=== PATIENT | male | born 1980 | race Caucasian/White ===

== ENCOUNTER 2021-12-12 05:37 | Emergency (ER) | payer OTHER ==
[2021-12-12] MEDS ORDERED: Ketorolac Tromethamine 30 MG/ML VIAL ONE (06:16)
[2021-12-12 06:33] LABS: #Basophils 0.1 10x3/uL (0.0-0.2); #Eosinphils 0.1 10x3/uL (0.0-0.5); #Monocytes 0.7 10x3/uL (0.0-1.1); #Neutrophils 7.1 10x3/uL (1.5-8.4); %Basophils 0.8 % (0.0-2.0); %Eosinophils 1.4 % (0.0-6.0); %Lymphocytes 13.5 % (18.0-47.0); %Monocytes 7.2 % (0.0-10.0); %Neutrophils 76.8 % (40.0-75.0); Hemoglobin 15.1 g/dL (13.5-17.5); Mean Corpuscular HGB CONC 33.6 g/dL (32.0-36.0); Mean Corpuscular Hemoglobin 30.8 pg (27.0-33.0); Mean Corpuscular Volume 91.6 fl (81.2-95.1); Mean Platelet Volume 9.7 fl (7.4-10.4); Platelet Count 260 10x3/uL (150-450); RBC Distribution Width 14.2 % (11.5-14.5); White Blood Cell (WBC) Count 9.2 10x3/uL (3.5-10.5)
[2021-12-12 06:44] LABS: ALT (SGPT) 30 U/L (8-55); AST (SGOT) 27 U/L (5-34); Albumin 4.3 g/dL (3.5-5.0); Alkaline Phosphatase 53 U/L (40-110); Anion Gap 12 mmol/L (10-20); BUN (Urea Nitrogen) 13 mg/dL (8.9-20.6); Bilirubin, Total 0.8 mg/dL (0.2-1.2); Calc. Creatinine Clearance 0 mL/min (70-130); Calcium 9.1 mg/dL (7.8-10.44); Carbon Dioxide 26 mmol/L (22-29); Chloride 104 mmol/L (98-107); Globulin 2.9 g/dL (2.4-3.5); Glucose 100 mg/dL (70-105); Potassium 3.9 mmol/L (3.5-5.1); Protein, Total 7.2 g/dL (6.0-8.3); Sodium 138 mmol/L (136-145)
[2021-12-12 08:51] LABS: Bilirubin Neg (Negative); Blood, Urine 250 (Negative); Clarity Clear (Clear); Glucose, Urine (Dipstick) Normal (Negative); Ketone, Urine Negative (Negative); Leukocyte 25 (Negative); Nitrite Negative (Negative); Protein, Urine (Dipstick) 30 mg/dl (Neg-Trace); Specific Gravity, Urine 1.015 (1.002-1.036); Urobilinogen Normal mg/dL (Less than 2)
[2021-12-12 08:59] LABS: Bacteria/HPF None Seen HPF (None Seen); Squamous Epithelial 0-3 HPF (0-3); WBC/HPF 0-3 HPF (0-3)
[2021-12-12 09:00] LABS: Triple Phosphate Crystal Rare HPF (None Seen)
[2021-12-12] MEDS ORDERED: Morphine 4 MG/ML VIAL ONE (10:00)
[2021-12-12] MEDS ORDERED: Ondansetron PF 4 MG/2 ML Vial ONE (10:00)
[2021-12-12] MEDS ORDERED: Lorazepam 2 MG/ML VIAL ONE (12:50)
== END 2021-12-12 09:55 | disposition home or self-care (01) ==
LOC: CSHERS 05:37
DX: N20.0 Calculus of kidney (principal); F17.210 Nicotine dependence, cigarettes, uncomplicated
CPT/HCPCS: 74176; 80053; 81003; 81015; 85025; 96374; 96375; J1885; J2060; J2270; J2405

== ENCOUNTER 2023-08-14 11:16 | Inpatient (IN) | payer OTHER, SELFPAY ==
[~2023-08-14 11:16] MED LIST: Iopamidol 300 61% 100 ML VIAL FS ONE
[2023-08-14 11:36] LABS: Actual Bicarbonate (HCO3v) 21.8 mEq/L (22-28); Base Excess -10.2 mEq/L (-2 - +2); Calcium, Ionized (venous) 1.06 mmol/L (1.16-1.32); Chloride (VBG) 100 mmol/L (98-106); Hematocrit-VBG 40 % (42.0-52.0); Hemoglobin (Hb) 13.6 g/dL (13.2-17.3); Potassium (VBG) 3.36 mmol/L (3.70-5.30); Puncture Site Other Site; RapidComm Collect By LAB TECH; Sodium 139 mmol/L (133-146); pH (venous) 7.044 (7.32-7.43)
[2023-08-14] MEDS ORDERED: Propofol 1,000 MG/100 ML VIAL IV ONE (11:36)
[2023-08-14 11:50] LABS: Hematocrit 39.8 % (38.8-50.0); Hemoglobin 12.7 g/dL (13.5-17.5); Mean Corpuscular HGB CONC 31.9 g/dL (32.0-36.0); Mean Corpuscular Hemoglobin 30.6 pg (27.0-33.0); Mean Corpuscular Volume 95.9 fl (81.2-95.1); Mean Platelet Volume 10.7 fl (7.4-10.4); Platelet Count 217 10x3/uL (150-450); RBC Distribution Width 13.2 % (11.5-14.5); Red Blood Cell (RBC) Count 4.15 10x6/uL (4.32-5.72); White Blood Cell (WBC) Count 12.9 10x3/uL (3.5-10.5)
[2023-08-14 11:53] LABS: Acetaminophen Less than 10 mcg/mL (10.0-30.0); Alcohol Less than 10.0 mg/dL (Less than 10); Magnesium 2.3 mg/dL (1.6-2.6); Salicylate Less than 8.0 mg/dL (15.0-30.0)
[2023-08-14 11:56] LABS: ALT (SGPT) 33 U/L (8-55); AST (SGOT) 29 U/L (5-34); Albumin 3.3 g/dL (3.5-5.0); Alkaline Phosphatase 45 U/L (40-110); Anion Gap 21 mmol/L (10-20); BUN (Urea Nitrogen) 11 mg/dL (8.9-20.6); Bilirubin, Total 0.4 mg/dL (0.2-1.2); CK (CPK) 78 U/L (30-200); Calc. Creatinine Clearance 0 mL/min (70-130); Calcium 7.5 mg/dL (7.8-10.44); Carbon Dioxide 20 mmol/L (22-29); Chloride 102 mmol/L (98-107); Estimated GFR 46; Globulin 1.9 g/dL (2.4-3.5); Potassium 3.5 mmol/L (3.5-5.1); Protein, Total 5.2 g/dL (6.0-8.3); Sodium 139 mmol/L (136-145)
[2023-08-14 11:59] LABS: Glucose 423 mg/dL (70-105); Troponin I Less than 0.010 ng/mL (< 0.028)
[2023-08-14 12:46] LABS: MDiff Complete? YES
[2023-08-14 12:59] LABS: Actual Bicarbonate (HCO3a) 27.1 mEq/L (22-28); Base Excess (BEa) 0.2 mEq/L (-2.0 to +3.0); CO2 Tension 53.6 mmHg (35.0-45.0); Calcium, Ionized (arterial) 1.06 mmol/L (1.12-1.30); Carboxyhemoglobin (COHb) 1.9 gm% (0.0-3.0); Hematocrit-ABG 39 % (42.0-52.0); Hemoglobin (Hb) 13.4 g/dL (14.0-18.0); O2 Tension (PaO2), arterial 54.2 mmHg (80.0-100.0); Puncture Site RRA; pH, Arterial 7.322 (7.35-7.45)
[2023-08-14 13:05] LABS: Amphetamine Detected (NotDetected); Barbiturates Screen Not Detected (NotDetected); Benzodiazepine Screen Not Detected (NotDetected); Cocaine Metabolite Screen Not Detected (NotDetected); Methadone Not Detected (NotDetected); Methamphetamine Detected (NotDetected); Opiate Screen Not Detected (NotDetected); Oxycodone Screen Not Detected (NotDetected); Phencyclidine (PCP) Not Detected (NotDetected); THC/Cannabinoid Screen Detected (NotDetected); Tricyclic Screen Not Detected (NotDetected)
[2023-08-14] MEDS ORDERED: Senokot S 8.6-50 MG TAB PO PRN (13:27)
[2023-08-14] MEDS ORDERED: Acetaminophen 650 MG Suppository PR PRN (13:27)
[2023-08-14] MEDS ORDERED: Ondansetron PF 4 MG/2 ML Vial IVP PRN (13:27)
[2023-08-14] MEDS ORDERED: CEFAZOLIN 2 GM VIAL ONE (13:28)
[2023-08-14] MEDS ORDERED: CEFAZOLIN 1 GM VIAL ONE (13:28)
[2023-08-14] MEDS ORDERED: Sodium Chloride 0.9% 1,000 ML IV SCH ×2 (13:30→13:31)
[2023-08-14 13:35] LABS: Monocytes 7 % (0-10)
[2023-08-14] MEDS ORDERED: Dextrose 5% in Water 1,000 ML IV PRN (13:35)
[2023-08-14] MEDS ORDERED: Glucagon 1 MG/ML KIT IM PRN (13:35)
[2023-08-14] MEDS ORDERED: Dextrose 50% Abboject 50 ML SYRINGE SLOW IVP PRN (13:35)
[2023-08-14 13:36] LABS: Eosinophils 4 % (0-10)
[2023-08-14 13:37] LABS: Band 4 % (5-11)
[2023-08-14 13:39] LABS: Lymphocytes 42 % (21-51)
[2023-08-14 13:40] LABS: Platelet Adequacy Comment Appears Adequate; RBC Morph Comment Within Normal Limits
[2023-08-14] MEDS ORDERED: Ventilator Sedation Protocol 1 EACH FS SCH (13:45)
[2023-08-14] MEDS ORDERED: Lactated Ringer's 1,000 ML IV SCH ×2 (13:45→19:30)
[2023-08-14] MEDS ORDERED: Ampicillin/Sulbactam 3 GM in Sodium Chloride 0.9% 100 ML IVPB SCH (13:45)
[2023-08-14 14:49] LABS: Lactic Acid 1.7 mmol/L (0.5-2.2)
[2023-08-14] MEDS ORDERED: Propofol BOLUS 1,000 MG/100 ML VIAL IV PRN (15:15)
[2023-08-14] MEDS ORDERED: Fentanyl BOLUS 250 ML IVPB PRN (15:15)
[2023-08-14] MEDS ORDERED: Lorazepam 2 MG/ML VIAL SLOW IVP PRN (15:15)
[2023-08-14] MEDS ORDERED: Morphine 2 MG/ML VIAL SLOW IVP PRN (15:15)
[2023-08-14] MEDS ORDERED: Piperacillin/Tazobactam 3.375 GM in Sodium Chloride 0.9% 100 ML IVPB SCH (15:45)
[2023-08-14] MEDS: Midazolam In 0.9 % NaCl/PF 100 MG in Premix 1 BAG IVPB SCH ×2 (15:54→23:30)
[2023-08-14] MEDS: Ipratropium/Albuterol 3 ML NEB NEB SCH ×3 (16:05→22:50)
[2023-08-14] MEDS: FENTANYL 2,000MCG/100-0.9%NACL 100 ML IVPB SCH ×2 (16:28→23:30)
[2023-08-14] MEDS: Propofol 1,000 MG/100 ML VIAL IV PRN ×4 (16:33→23:51)
[2023-08-14 16:42] LABS: Actual Bicarbonate (HCO3a) 23.9 mEq/L (22-28); Base Excess (BEa) -4.3 mEq/L (-2.0 to +3.0); CO2 Tension 55.4 mmHg (35.0-45.0); Calcium, Ionized (arterial) 1.11 mmol/L (1.12-1.30); Carboxyhemoglobin (COHb) 0.9 gm% (0.0-3.0); Hematocrit-ABG 50 % (42.0-52.0); Hemoglobin (Hb) 17.1 g/dL (14.0-18.0); O2 Tension (PaO2), arterial 56.3 mmHg (80.0-100.0); Puncture Site LRA; pH, Arterial 7.252 (7.35-7.45)
[2023-08-14] MEDS: Vecuronium 10 MG VIAL IV PRN (17:15)
[2023-08-14] MEDS ORDERED: Norepinephrine 8 MG/0.9% NS 250 ML IVPB SCH (17:15)
[2023-08-14] MEDS ORDERED: Sterile Water 10 ML VIAL FS PRN (17:16)
[2023-08-14 18:30] LABS: INR-International Normal Ratio 1.1; PTT 29.1 sec (22.0-33.0); Prothrombin Time 11.4 sec (9.5-12.1)
[2023-08-14] MEDS ORDERED: DO NOT USE PRE-EXISTING LYTE PROTOCOL FS SCH (18:45)
[2023-08-14 19:24] LABS: Phosphorus 9.4 mg/dL (2.3-4.7)
[2023-08-14] MEDS ORDERED: NOREPINEPHRINE 8 MG/250 ML-D5W 250 ML IVPB SCH (19:30)
[2023-08-14] MEDS ORDERED: Calcium Acetate 667 MG CAP PO SCH (20:00)
[2023-08-14 20:05] LABS: Calcium 8.2 mg/dL (7.8-10.44); Glucose 103 mg/dL (70-105)
[2023-08-14] MEDS: Vasopressin 20 UNITS, Admixture Fee 1 EACH in Sodium Chloride 0.9% 50 ML IV SCH (20:31)
[2023-08-14] MEDS: Piperacillin/Tazobactam 3.375 GM in Sodium Chloride 0.9% 100 ML IVPB SCH (20:48)
[2023-08-14 22:11] LABS: Anion Gap 18 mmol/L (10-20); BUN (Urea Nitrogen) 12 mg/dL (8.9-20.6); Calc. Creatinine Clearance 132 mL/min (70-130); Calcium 8.3 mg/dL (7.8-10.44); Carbon Dioxide 24 mmol/L (22-29); Chloride 104 mmol/L (98-107); Estimated GFR 68; Glucose 100 mg/dL (70-105); INR-International Normal Ratio 1.1; PTT 29.9 sec (22.0-33.0); Phosphorus 2.1 mg/dL (2.3-4.7); Potassium 3.7 mmol/L (3.5-5.1); Prothrombin Time 11.5 sec (9.5-12.1); Sodium 142 mmol/L (136-145)
[2023-08-14] MEDS: Dextrose 5%-Lactated Ringers 1,000 ML IV SCH (22:16)
[2023-08-14] MEDS: Famotidine/PF 20 mg/2ml Vial SLOW IVP SCH (22:16)
[2023-08-14 22:18] LABS: Troponin I 0.063 ng/mL (< 0.028)
[2023-08-14 22:23] LABS: Hematocrit 46.4 % (38.8-50.0); Hemoglobin 15.3 g/dL (13.5-17.5); Mean Corpuscular Hemoglobin 29.9 pg (27.0-33.0); Mean Corpuscular Volume 90.6 fl (81.2-95.1); Mean Platelet Volume 10.4 fl (7.4-10.4); Platelet Count 217 10x3/uL (150-450); RBC Distribution Width 13.4 % (11.5-14.5); Red Blood Cell (RBC) Count 5.12 10x6/uL (4.32-5.72); White Blood Cell (WBC) Count 7.8 10x3/uL (3.5-10.5)
[2023-08-14 22:41] LABS: ALV-art Gradient 166.875 mmHg (0-20); Actual Bicarbonate (HCO3a) 23.2 mEq/L (22-28); Base Excess (BEa) 0.2 mEq/L (-2.0 to +3.0); CO2 Tension 33.3 mmHg (35.0-45.0); Calcium, Ionized (arterial) 1.09 mmol/L (1.12-1.30); Carboxyhemoglobin (COHb) 0.2 gm% (0.0-3.0); Critical Notified By: CP.PH; Hematocrit-ABG 48 % (42.0-52.0); Hemoglobin (Hb) 16.3 g/dL (14.0-18.0); O2 Tension (PaO2), arterial 76.7 mmHg (80.0-100.0); Potassium - ABG Lab 3.18 mmol/L (3.70-5.30); Puncture Site LRA; RapidComm Collect By CP.PH
[2023-08-14 23:02] LABS: Band 36 % (5-11); Lymphocytes 6 % (21-51); Metamyelocyte 7 % (0-0); Monocytes 11 % (0-10); RBC Morph Comment Within Normal Limits; Reactive Lymphocytes 5 % (0-10)
[2023-08-14 23:03] LABS: Platelet Adequacy Comment Appears Adequate
[2023-08-14 23:06] LABS: Neutrophil 35 % (42-75)
[2023-08-14 23:10] LABS: MDiff Complete? YES
[2023-08-15] MEDS: Vasopressin 20 UNITS, Admixture Fee 1 EACH in Sodium Chloride 0.9% 50 ML IV SCH ×2 (01:52→10:13)
[2023-08-15] MEDS: Propofol 1,000 MG/100 ML VIAL IV PRN ×3 (02:30→20:22)
[2023-08-15] MEDS: Ipratropium/Albuterol 3 ML NEB NEB SCH ×6 (02:30→22:05)
[2023-08-15 04:11] LABS: Actual Bicarbonate (HCO3a) 20.5 mEq/L (22-28); Base Excess (BEa) -4.7 mEq/L (-2.0 to +3.0); CO2 Tension 38.8 mmHg (35.0-45.0); Calcium, Ionized (arterial) 1.17 mmol/L (1.12-1.30); Carboxyhemoglobin (COHb) 0.3 gm% (0.0-3.0); Critical Notified By: CP.PH; Hematocrit-ABG 45 % (42.0-52.0); Hemoglobin (Hb) 15.2 g/dL (14.0-18.0); O2 Tension (PaO2), arterial 88.2 mmHg (80.0-100.0); Potassium - ABG Lab 2.87 mmol/L (3.70-5.30); Puncture Site LRA; RapidComm Collect By CP.PH; Temperature 32.8 C; pH, Arterial 7.341 (7.35-7.45)
[2023-08-15] MEDS: Piperacillin/Tazobactam 3.375 GM in Sodium Chloride 0.9% 100 ML IVPB SCH ×3 (04:20→20:01)
[2023-08-15 04:52] LABS: Anion Gap 18 mmol/L (10-20); BUN (Urea Nitrogen) 13 mg/dL (8.9-20.6); CK (CPK) 181 U/L (30-200); Calc. Creatinine Clearance 132 mL/min (70-130); Calcium 8.3 mg/dL (7.8-10.44); Carbon Dioxide 20 mmol/L (22-29); Chloride 105 mmol/L (98-107); Estimated GFR 68; Glucose 197 mg/dL (70-105); Magnesium 1.6 mg/dL (1.6-2.6); Potassium 3.3 mmol/L (3.5-5.1); Sodium 140 mmol/L (136-145)
[2023-08-15 05:05] LABS: Band 47 % (5-11); Lymphocytes 5 % (21-51); Metamyelocyte 7 % (0-0); Monocytes 6 % (0-10); Myelocyte 1 % (0-0); Neutrophil 32 % (42-75); Reactive Lymphocytes 2 % (0-10)
[2023-08-15 05:07] LABS: Reflex for Review?? YES
[2023-08-15 05:09] LABS: Platelet Adequacy Comment Appears Adequate; RBC Morph Comment Within Normal Limits
[2023-08-15 05:10] LABS: Delete Auto Diff?? YES; Hematocrit 42.9 % (38.8-50.0); Hemoglobin 14.1 g/dL (13.5-17.5); Mean Corpuscular HGB CONC 32.9 g/dL (32.0-36.0); Mean Corpuscular Hemoglobin 29.7 pg (27.0-33.0); Mean Corpuscular Volume 90.5 fl (81.2-95.1); Mean Platelet Volume 10.3 fl (7.4-10.4); Platelet Count 196 10x3/uL (150-450); RBC Distribution Width 13.5 % (11.5-14.5); Red Blood Cell (RBC) Count 4.74 10x6/uL (4.32-5.72); White Blood Cell (WBC) Count 8.4 10x3/uL (3.5-10.5)
[2023-08-15] MEDS ORDERED: Potassium Chloride 40 MEQ in Premix 1 BAG IVPB SCH (07:45)
[2023-08-15] MEDS: Dextrose 5%-Lactated Ringers 1,000 ML IV SCH ×2 (08:20→17:17)
[2023-08-15] MEDS: Famotidine/PF 20 mg/2ml Vial SLOW IVP SCH ×2 (08:20→20:02)
[2023-08-15] MEDS: Calcium Acetate 667 MG CAP PO SCH ×2 (08:48→12:31)
[2023-08-15 10:37] LABS: INR-International Normal Ratio 1.1; PTT 26.1 sec (22.0-33.0); Prothrombin Time 11.8 sec (9.5-12.1)
[2023-08-15 10:40] LABS: Anion Gap 18 mmol/L (10-20); BUN (Urea Nitrogen) 14 mg/dL (8.9-20.6); Calc. Creatinine Clearance 138 mL/min (70-130); Calcium 8.5 mg/dL (7.8-10.44); Carbon Dioxide 21 mmol/L (22-29); Chloride 105 mmol/L (98-107); Estimated GFR 69; Glucose 176 mg/dL (70-105); Magnesium 1.7 mg/dL (1.6-2.6); Phosphorus 2.2 mg/dL (2.3-4.7); Sodium 141 mmol/L (136-145)
[2023-08-15 10:46] LABS: Troponin I Less than 0.010 ng/mL (< 0.028)
[2023-08-15 10:48] LABS: Hematocrit 43.9 % (38.8-50.0); Hemoglobin 14.3 g/dL (13.5-17.5); Mean Corpuscular HGB CONC 32.6 g/dL (32.0-36.0); Mean Corpuscular Volume 92.2 fl (81.2-95.1); Mean Platelet Volume 10.6 fl (7.4-10.4); Platelet Count 214 10x3/uL (150-450); RBC Distribution Width 13.7 % (11.5-14.5); Red Blood Cell (RBC) Count 4.76 10x6/uL (4.32-5.72); White Blood Cell (WBC) Count 14.4 10x3/uL (3.5-10.5)
[2023-08-15 10:49] LABS: MDiff Complete? YES
[2023-08-15] MEDS: Magnesium 2 GM/50 ML(in water) 2 GM in Premix 1 BAG IVPB SCH ×2 (11:15→12:04)
[2023-08-15 11:35] LABS: Lymphocytes 8 % (21-51); Monocytes 8 % (0-10)
[2023-08-15 11:37] LABS: Platelet Adequacy Comment Appears Adequate; RBC Morph Comment Within Normal Limits
[2023-08-15] MEDS: Vecuronium 10 MG VIAL IV PRN ×4 (13:32→21:52)
[2023-08-15 14:54] LABS: Hemoglobin A1c 4.9 % (4.0-6.0)
[2023-08-15] MEDS ORDERED: Electrolyte Replacement Protocol 1 EACH FS SCH (16:00)
[2023-08-15 17:02] LABS: Anion Gap 15 mmol/L (10-20); BUN (Urea Nitrogen) 15 mg/dL (8.9-20.6); Calc. Creatinine Clearance 154 mL/min (70-130); Calcium 8.6 mg/dL (7.8-10.44); Carbon Dioxide 22 mmol/L (22-29); Chloride 107 mmol/L (98-107); Estimated GFR 80; Glucose 150 mg/dL (70-105); Potassium 3.4 mmol/L (3.5-5.1); Sodium 141 mmol/L (136-145)
[2023-08-15 20:20] LABS: Magnesium 2.5 mg/dL (1.6-2.6)
[2023-08-15] MEDS: FENTANYL 2,000MCG/100-0.9%NACL 100 ML IVPB SCH (20:21)
[2023-08-15 20:27] LABS: Anion Gap 18 mmol/L (10-20); BUN (Urea Nitrogen) 15 mg/dL (8.9-20.6); Calc. Creatinine Clearance 161 mL/min (70-130); Calcium 8.6 mg/dL (7.8-10.44); Carbon Dioxide 19 mmol/L (22-29); Chloride 108 mmol/L (98-107); Estimated GFR 84; Glucose 119 mg/dL (70-105); Potassium 3.8 mmol/L (3.5-5.1); Sodium 141 mmol/L (136-145)
[2023-08-16] MEDS: Propofol 1,000 MG/100 ML VIAL IV PRN ×4 (00:32→23:29)
[2023-08-16 00:55] LABS: Anion Gap 18 mmol/L (10-20); BUN (Urea Nitrogen) 15 mg/dL (8.9-20.6); Calc. Creatinine Clearance 149 mL/min (70-130); Calcium 8.4 mg/dL (7.8-10.44); Carbon Dioxide 20 mmol/L (22-29); Chloride 108 mmol/L (98-107); Estimated GFR 76; Glucose 107 mg/dL (70-105); Potassium 4.1 mmol/L (3.5-5.1); Sodium 142 mmol/L (136-145)
[2023-08-16] MEDS: Dextrose 5%-Lactated Ringers 1,000 ML IV SCH ×3 (02:29→23:30)
[2023-08-16] MEDS: Ipratropium/Albuterol 3 ML NEB NEB SCH ×6 (02:55→22:33)
[2023-08-16] MEDS: Piperacillin/Tazobactam 3.375 GM in Sodium Chloride 0.9% 100 ML IVPB SCH ×3 (03:30→21:00)
[2023-08-16 03:58] LABS: Hematocrit 42.7 % (38.8-50.0); Hemoglobin 14.2 g/dL (13.5-17.5); Mean Corpuscular HGB CONC 33.3 g/dL (32.0-36.0); Mean Corpuscular Hemoglobin 29.8 pg (27.0-33.0); Mean Corpuscular Volume 89.7 fl (81.2-95.1); Mean Platelet Volume 10.8 fl (7.4-10.4); Platelet Count 190 10x3/uL (150-450); Red Blood Cell (RBC) Count 4.76 10x6/uL (4.32-5.72); White Blood Cell (WBC) Count 17.9 10x3/uL (3.5-10.5)
[2023-08-16 04:06] LABS: Anion Gap 18 mmol/L (10-20); BUN (Urea Nitrogen) 14 mg/dL (8.9-20.6); Calc. Creatinine Clearance 147 mL/min (70-130); Calcium 8.6 mg/dL (7.8-10.44); Carbon Dioxide 21 mmol/L (22-29); Chloride 107 mmol/L (98-107); Estimated GFR 75; Glucose 97 mg/dL (70-105); Magnesium 2.3 mg/dL (1.6-2.6); Potassium 4.2 mmol/L (3.5-5.1); Sodium 142 mmol/L (136-145)
[2023-08-16 04:12] LABS: Band 35 % (5-11); Eosinophils 2 % (0-10); Lymphocytes 9 % (21-51); Metamyelocyte 6 % (0-0); Monocytes 7 % (0-10); Neutrophil 41 % (42-75)
[2023-08-16 04:14] LABS: Delete Auto Diff?? YES; Platelet Adequacy Comment Appears Adequate; RBC Morph Comment Within Normal Limits
[2023-08-16 04:19] LABS: Phosphorus 3.7 mg/dL (2.3-4.7)
[2023-08-16] MEDS ORDERED: Midazolam HCl 2 mg/2 ml Vial IVP SCH (05:00)
[2023-08-16] MEDS: Famotidine/PF 20 mg/2ml Vial SLOW IVP SCH ×2 (08:25→21:00)
[2023-08-16 09:00] LABS: Anion Gap 14 mmol/L (10-20); BUN (Urea Nitrogen) 14 mg/dL (8.9-20.6); Calc. Creatinine Clearance 138 mL/min (70-130); Calcium 8.9 mg/dL (7.8-10.44); Carbon Dioxide 27 mmol/L (22-29); Chloride 107 mmol/L (98-107); Estimated GFR 69; Glucose 98 mg/dL (70-105); Potassium 4.2 mmol/L (3.5-5.1); Sodium 144 mmol/L (136-145)
[2023-08-16 09:03] LABS: ALV-art Gradient 149.525 mmHg (0-20); Actual Bicarbonate (HCO3a) 27.8 mEq/L (22-28); Base Excess (BEa) 0.9 mEq/L (-2.0 to +3.0); CO2 Tension 53.1 mmHg (35.0-45.0); Calcium, Ionized (arterial) 1.19 mmol/L (1.12-1.30); Carboxyhemoglobin (COHb) 0.5 gm% (0.0-3.0); Hematocrit-ABG 45 % (42.0-52.0); Hemoglobin (Hb) 15.2 g/dL (14.0-18.0); O2 Tension (PaO2), arterial 69.3 mmHg (80.0-100.0); Potassium - ABG Lab 4.07 mmol/L (3.70-5.30); Puncture Site RFA; pH, Arterial 7.337 (7.35-7.45)
[2023-08-16 12:32] LABS: Anion Gap 14 mmol/L (10-20); BUN (Urea Nitrogen) 14 mg/dL (8.9-20.6); Calc. Creatinine Clearance 150 mL/min (70-130); Carbon Dioxide 26 mmol/L (22-29); Chloride 107 mmol/L (98-107); Estimated GFR 76; Glucose 96 mg/dL (70-105); Potassium 4.3 mmol/L (3.5-5.1); Sodium 143 mmol/L (136-145)
[2023-08-16] MEDS: Acetaminophen 325 MG TAB PO PRN (19:37)
[2023-08-16 20:00] LABS: Neutrophil 41 % (42-75)
[2023-08-16 20:01] LABS: Band 38 % (5-11); Metamyelocyte 5 % (0-0)
[2023-08-16 20:11] LABS: Metamyelocyte 3 % (0-0); Myelocyte 1 % (0-0); Neutrophil 38 % (42-75)
[2023-08-17] MEDS: Ipratropium/Albuterol 3 ML NEB NEB SCH ×5 (02:37→20:55)
[2023-08-17] MEDS: FENTANYL 2,000MCG/100-0.9%NACL 100 ML IVPB SCH (03:23)
[2023-08-17] MEDS: Piperacillin/Tazobactam 3.375 GM in Sodium Chloride 0.9% 100 ML IVPB SCH ×3 (03:24→20:30)
[2023-08-17 04:03] LABS: #Basophils 0.1 10x3/uL (0.0-0.2); #Eosinphils 0.6 10x3/uL (0.0-0.5); #Monocytes 0.6 10x3/uL (0.0-1.1); #Neutrophils 11.1 10x3/uL (1.5-8.4); %Basophils 0.5 % (0.0-2.0); %Eosinophils 4.3 % (0.0-6.0); %Monocytes 4.3 % (0.0-10.0); %Neutrophils 84.1 % (40.0-75.0); Hematocrit 37.5 % (38.8-50.0); Hemoglobin 12.1 g/dL (13.5-17.5); Mean Corpuscular HGB CONC 32.3 g/dL (32.0-36.0); Mean Corpuscular Hemoglobin 29.6 pg (27.0-33.0); Mean Corpuscular Volume 91.7 fl (81.2-95.1); Mean Platelet Volume 10.7 fl (7.4-10.4); Platelet Count 162 10x3/uL (150-450); RBC Distribution Width 14.4 % (11.5-14.5); Red Blood Cell (RBC) Count 4.09 10x6/uL (4.32-5.72); White Blood Cell (WBC) Count 13.1 10x3/uL (3.5-10.5)
[2023-08-17 04:12] LABS: Anion Gap 13 mmol/L (10-20); BUN (Urea Nitrogen) 14 mg/dL (8.9-20.6); Calc. Creatinine Clearance 138 mL/min (70-130); Calcium 7.7 mg/dL (7.8-10.44); Carbon Dioxide 24 mmol/L (22-29); Chloride 106 mmol/L (98-107); Estimated GFR 69; Glucose 106 mg/dL (70-105); Sodium 139 mmol/L (136-145)
[2023-08-17] MEDS: Propofol 1,000 MG/100 ML VIAL IV PRN ×2 (04:42→21:38)
[2023-08-17] MEDS ORDERED: Magnesium 2 GM/50 ML(in water) 2 GM in Premix 1 BAG IVPB SCH (05:00)
[2023-08-17 05:49] LABS: ALV-art Gradient 137.525 mmHg (0-20); Actual Bicarbonate (HCO3a) 25.8 mEq/L (22-28); CO2 Tension 37.5 mmHg (35.0-45.0); Calcium, Ionized (arterial) 1.17 mmol/L (1.12-1.30); Carboxyhemoglobin (COHb) 0.3 gm% (0.0-3.0); Critical Notified By: CP.MC; Hematocrit-ABG 38 % (42.0-52.0); O2 Tension (PaO2), arterial 100.8 mmHg (80.0-100.0); Potassium - ABG Lab 3.98 mmol/L (3.70-5.30); Puncture Site LRA; RapidComm Collect By CP.MC; pH, Arterial 7.456 (7.35-7.45)
[2023-08-17] MEDS: Famotidine/PF 20 mg/2ml Vial SLOW IVP SCH ×2 (08:07→20:30)
[2023-08-17] MEDS: Dextrose 5%-Lactated Ringers 1,000 ML IV SCH ×2 (08:07→20:30)
[2023-08-18] MEDS: Ipratropium/Albuterol 3 ML NEB NEB SCH ×6 (00:10→20:00)
[2023-08-18] MEDS: Acetaminophen 325 MG TAB PO PRN ×5 (02:32→21:29)
[2023-08-18] MEDS: Piperacillin/Tazobactam 3.375 GM in Sodium Chloride 0.9% 100 ML IVPB SCH ×3 (03:05→20:04)
[2023-08-18 03:30] LABS: #Basophils 0.1 10x3/uL (0.0-0.2); #Eosinphils 0.4 10x3/uL (0.0-0.5); #Monocytes 0.9 10x3/uL (0.0-1.1); #Neutrophils 10.3 10x3/uL (1.5-8.4); %Basophils 0.4 % (0.0-2.0); %Eosinophils 2.9 % (0.0-6.0); %Lymphocytes 4.5 % (18.0-47.0); %Monocytes 7.1 % (0.0-10.0); %Neutrophils 84.7 % (40.0-75.0); Hematocrit 39.2 % (38.8-50.0); Hemoglobin 12.7 g/dL (13.5-17.5); Mean Corpuscular HGB CONC 32.4 g/dL (32.0-36.0); Mean Corpuscular Volume 92.7 fl (81.2-95.1); Mean Platelet Volume 10.6 fl (7.4-10.4); Platelet Count 195 10x3/uL (150-450); RBC Distribution Width 14.5 % (11.5-14.5); Red Blood Cell (RBC) Count 4.23 10x6/uL (4.32-5.72); White Blood Cell (WBC) Count 12.2 10x3/uL (3.5-10.5)
[2023-08-18 03:49] LABS: Anion Gap 13 mmol/L (10-20); BUN (Urea Nitrogen) 11 mg/dL (8.9-20.6); Calc. Creatinine Clearance 0 mL/min (70-130); Calcium 9.5 mg/dL (7.8-10.44); Carbon Dioxide 27 mmol/L (22-29); Chloride 103 mmol/L (98-107); Estimated GFR 96; Glucose 91 mg/dL (70-105); Magnesium 1.9 mg/dL (1.6-2.6); Potassium 4.3 mmol/L (3.5-5.1); Sodium 139 mmol/L (136-145)
[2023-08-18] MEDS: Dextrose 5%-Lactated Ringers 1,000 ML IV SCH (04:10)
[2023-08-18 04:56] LABS: ALV-art Gradient 172.725 mmHg (0-20); Base Excess (BEa) 0.6 mEq/L (-2.0 to +3.0); CO2 Tension 57.1 mmHg (35.0-45.0); Calcium, Ionized (arterial) 1.19 mmol/L (1.12-1.30); Carboxyhemoglobin (COHb) 0.3 gm% (0.0-3.0); Critical Notified By: CP.PH; Hematocrit-ABG 39 % (42.0-52.0); Hemoglobin (Hb) 13.1 g/dL (14.0-18.0); O2 Tension (PaO2), arterial 41.1 mmHg (80.0-100.0); Potassium - ABG Lab 4.32 mmol/L (3.70-5.30); Puncture Site Other Site; RapidComm Collect By CP.PH; pH, Arterial 7.308 (7.35-7.45)
[2023-08-18] MEDS ORDERED: Magnesium 2 GM/50 ML(in water) 2 GM in Premix 1 BAG IVPB SCH (05:45)
[2023-08-18] MEDS: Famotidine/PF 20 mg/2ml Vial SLOW IVP SCH ×2 (07:44→20:04)
[2023-08-18] MEDS ORDERED: Furosemide 40 MG/4 ML VIAL SLOW IVP SCH (08:00)
[2023-08-18] MEDS: Metoclopramide HCl 10 MG/2 ML VIAL IVP SCH ×3 (08:32→20:04)
[2023-08-18] MEDS: Propofol 1,000 MG/100 ML VIAL IV PRN ×2 (08:33→21:29)
[2023-08-18] MEDS: FENTANYL 2,000MCG/100-0.9%NACL 100 ML IVPB SCH (08:48)
[2023-08-18 12:19] LABS: ALV-art Gradient 110.925 mmHg (0-20); Actual Bicarbonate (HCO3a) 28.7 mEq/L (22-28); Base Excess (BEa) 3.6 mEq/L (-2.0 to +3.0); CO2 Tension 45.1 mmHg (35.0-45.0); Calcium, Ionized (arterial) 1.11 mmol/L (1.12-1.30); Carboxyhemoglobin (COHb) 0.4 gm% (0.0-3.0); Hematocrit-ABG 42 % (42.0-52.0); Hemoglobin (Hb) 14.2 g/dL (14.0-18.0); O2 Tension (PaO2), arterial 117.9 mmHg (80.0-100.0); Potassium - ABG Lab 3.91 mmol/L (3.70-5.30); RapidComm Collect By Udy, RRT; pH, Arterial 7.422 (7.35-7.45)
[2023-08-19] MEDS: Metoclopramide HCl 10 MG/2 ML VIAL IVP SCH ×4 (01:04→20:20)
[2023-08-19] MEDS: Ipratropium/Albuterol 3 ML NEB NEB SCH ×7 (01:50→22:13)
[2023-08-19] MEDS: Piperacillin/Tazobactam 3.375 GM in Sodium Chloride 0.9% 100 ML IVPB SCH ×2 (03:07→11:27)
[2023-08-19 03:49] LABS: #Basophils 0.1 10x3/uL (0.0-0.2); #Eosinphils 0.2 10x3/uL (0.0-0.5); #Monocytes 1.8 10x3/uL (0.0-1.1); #Neutrophils 8.5 10x3/uL (1.5-8.4); %Basophils 0.7 % (0.0-2.0); %Eosinophils 1.5 % (0.0-6.0); %Lymphocytes 7.6 % (18.0-47.0); %Monocytes 15.6 % (0.0-10.0); %Neutrophils 73.6 % (40.0-75.0); Anion Gap 16 mmol/L (10-20); BUN (Urea Nitrogen) 19 mg/dL (8.9-20.6); Calc. Creatinine Clearance 188 mL/min (70-130); Calcium 9.9 mg/dL (7.8-10.44); Carbon Dioxide 28 mmol/L (22-29); Chloride 96 mmol/L (98-107); Estimated GFR 100; Glucose 80 mg/dL (70-105); Hematocrit 41.3 % (38.8-50.0); Hemoglobin 13.3 g/dL (13.5-17.5); Mean Corpuscular HGB CONC 32.2 g/dL (32.0-36.0); Mean Corpuscular Hemoglobin 29.9 pg (27.0-33.0); Mean Corpuscular Volume 92.8 fl (81.2-95.1); Mean Platelet Volume 10.5 fl (7.4-10.4); Platelet Count 219 10x3/uL (150-450); Potassium 4.2 mmol/L (3.5-5.1); RBC Distribution Width 14.1 % (11.5-14.5); Red Blood Cell (RBC) Count 4.45 10x6/uL (4.32-5.72); Sodium 136 mmol/L (136-145); White Blood Cell (WBC) Count 11.5 10x3/uL (3.5-10.5)
[2023-08-19 04:05] LABS: Base Excess (BEa) 2.9 mEq/L (-2.0 to +3.0); Calcium, Ionized (arterial) 1.17 mmol/L (1.12-1.30); Carboxyhemoglobin (COHb) 0.1 gm% (0.0-3.0); Critical Notified By: CP.PH; Hematocrit-ABG 41 % (42.0-52.0); O2 Tension (PaO2), arterial 72.2 mmHg (80.0-100.0); Potassium - ABG Lab 4.28 mmol/L (3.70-5.30); Puncture Site RRA; RapidComm Collect By CP.PH; pH, Arterial 7.381 (7.35-7.45)
[2023-08-19] MEDS: Famotidine/PF 20 mg/2ml Vial SLOW IVP SCH ×2 (07:39→20:20)
[2023-08-19] MEDS: Acetaminophen 325 MG TAB PO PRN ×3 (07:40→17:03)
[2023-08-19] MEDS ORDERED: guaiFENesin ER 600 MG TAB PO SCH (09:00)
[2023-08-19] MEDS: Dexmedetomidine In 0.9 % NaCl 100 ML IVPB SCH ×2 (11:27→18:10)
[2023-08-19] MEDS ORDERED: Acetaminophen 650 MG/20.3 ML UDCUP PER TUBE SCH (17:45)
[2023-08-19] MEDS ORDERED: VANCOMYCIN 2 GRAM/400 ML BAG 2 GM in Premix 1 BAG IVPB SCH (18:00)
[2023-08-20] MEDS: Acetaminophen 325 MG TAB PO PRN ×4 (00:45→23:02)
[2023-08-20] MEDS: Vancomycin 1.5 GRAM/300 ML BAG 1.5 GM in Premix 1 BAG IVPB SCH ×3 (01:03→17:15)
[2023-08-20] MEDS: Metoclopramide HCl 10 MG/2 ML VIAL IVP SCH ×4 (01:03→20:18)
[2023-08-20] MEDS: Dexmedetomidine In 0.9 % NaCl 100 ML IVPB SCH ×3 (02:30→21:59)
[2023-08-20] MEDS: Ipratropium/Albuterol 3 ML NEB NEB SCH ×6 (03:02→23:05)
[2023-08-20 04:06] LABS: #Basophils 0.1 10x3/uL (0.0-0.2); #Eosinphils 0.5 10x3/uL (0.0-0.5); #Monocytes 1.7 10x3/uL (0.0-1.1); %Basophils 0.8 % (0.0-2.0); %Eosinophils 5.4 % (0.0-6.0); %Lymphocytes 16.4 % (18.0-47.0); %Monocytes 19.2 % (0.0-10.0); %Neutrophils 56.6 % (40.0-75.0); Hematocrit 35.9 % (38.8-50.0); Hemoglobin 11.6 g/dL (13.5-17.5); Mean Corpuscular HGB CONC 32.3 g/dL (32.0-36.0); Mean Corpuscular Hemoglobin 30.2 pg (27.0-33.0); Mean Corpuscular Volume 93.5 fl (81.2-95.1); Platelet Count 207 10x3/uL (150-450); RBC Distribution Width 14.1 % (11.5-14.5); Red Blood Cell (RBC) Count 3.84 10x6/uL (4.32-5.72); White Blood Cell (WBC) Count 8.7 10x3/uL (3.5-10.5)
[2023-08-20 04:09] LABS: Anion Gap 15 mmol/L (10-20); BUN (Urea Nitrogen) 23 mg/dL (8.9-20.6); Calc. Creatinine Clearance 170 mL/min (70-130); Calcium 8.9 mg/dL (7.8-10.44); Carbon Dioxide 28 mmol/L (22-29); Chloride 100 mmol/L (98-107); Estimated GFR 89; Glucose 116 mg/dL (70-105); Potassium 4.4 mmol/L (3.5-5.1); Sodium 139 mmol/L (136-145)
[2023-08-20 04:28] LABS: Base Excess (BEa) 6.5 mEq/L (-2.0 to +3.0); CO2 Tension 44.2 mmHg (35.0-45.0); Calcium, Ionized (arterial) 1.13 mmol/L (1.12-1.30); Carboxyhemoglobin (COHb) 0.1 gm% (0.0-3.0); Hematocrit-ABG 37 % (42.0-52.0); Hemoglobin (Hb) 12.5 g/dL (14.0-18.0); O2 Tension (PaO2), arterial 91.7 mmHg (80.0-100.0); Potassium - ABG Lab 3.88 mmol/L (3.70-5.30); Puncture Site LRA; RapidComm Collect By Udy, RRT; pH, Arterial 7.464 (7.35-7.45)
[2023-08-20 04:30] LABS: Critical Notified By: Udy, RRT
[2023-08-20] MEDS: Famotidine/PF 20 mg/2ml Vial SLOW IVP SCH ×2 (07:59→20:18)
[2023-08-20] MEDS ORDERED: Meropenem 1 GM in Sodium Chloride 0.9% 100 ML IVPB SCH (10:30)
[2023-08-20 17:27] LABS: Vancomycin, Trough 13.3 ug/mL
[2023-08-20] MEDS: Meropenem 1 GM in Sodium Chloride 0.9% 100 ML IVPB SCH (20:18)
[2023-08-20 20:53] LABS: Actual Bicarbonate (HCO3a) 26.6 mEq/L (22-28); Base Excess (BEa) 3.4 mEq/L (-2.0 to +3.0); CO2 Tension 35.7 mmHg (35.0-45.0); Calcium, Ionized (arterial) 1.14 mmol/L (1.12-1.30); Carboxyhemoglobin (COHb) 0.3 gm% (0.0-3.0); Hematocrit-ABG 37 % (42.0-52.0); Hemoglobin (Hb) 12.7 g/dL (14.0-18.0); O2 Tension (PaO2), arterial 70.8 mmHg (80.0-100.0); Potassium - ABG Lab 3.87 mmol/L (3.70-5.30); Puncture Site LRA; RapidComm Collect By Udy, RRT
[2023-08-20 20:55] LABS: Critical Notified By: Udy, RRT
[2023-08-20] MEDS: FENTANYL 2,000MCG/100-0.9%NACL 100 ML IVPB SCH (22:25)
[2023-08-21] MEDS: Vancomycin 1.5 GRAM/300 ML BAG 1.5 GM in Premix 1 BAG IVPB SCH ×3 (01:39→17:42)
[2023-08-21] MEDS: Metoclopramide HCl 10 MG/2 ML VIAL IVP SCH ×4 (01:40→19:54)
[2023-08-21] MEDS: Ipratropium/Albuterol 3 ML NEB NEB SCH ×6 (02:56→22:40)
[2023-08-21] MEDS: Meropenem 1 GM in Sodium Chloride 0.9% 100 ML IVPB SCH ×3 (03:56→19:54)
[2023-08-21] MEDS: Acetaminophen 325 MG TAB PO PRN ×3 (03:57→21:13)
[2023-08-21 04:43] LABS: #Basophils 0.1 10x3/uL (0.0-0.2); #Eosinphils 0.3 10x3/uL (0.0-0.5); #Monocytes 1.4 10x3/uL (0.0-1.1); #Neutrophils 4.7 10x3/uL (1.5-8.4); %Basophils 0.8 % (0.0-2.0); %Eosinophils 3.4 % (0.0-6.0); %Lymphocytes 17.8 % (18.0-47.0); %Monocytes 16.9 % (0.0-10.0); %Neutrophils 58.8 % (40.0-75.0); Hematocrit 34.7 % (38.8-50.0); Hemoglobin 11.1 g/dL (13.5-17.5); Mean Corpuscular Hemoglobin 29.8 pg (27.0-33.0); Mean Platelet Volume 10.6 fl (7.4-10.4); Platelet Count 238 10x3/uL (150-450); RBC Distribution Width 14.4 % (11.5-14.5); Red Blood Cell (RBC) Count 3.73 10x6/uL (4.32-5.72)
[2023-08-21 04:48] LABS: ALV-art Gradient 154.175 mmHg (0-20); Actual Bicarbonate (HCO3a) 29.2 mEq/L (22-28); Base Excess (BEa) 5.4 mEq/L (-2.0 to +3.0); CO2 Tension 39.7 mmHg (35.0-45.0); Calcium, Ionized (arterial) 1.14 mmol/L (1.12-1.30); Carboxyhemoglobin (COHb) 0.3 gm% (0.0-3.0); Critical Notified By: Udy, RRT; Hematocrit-ABG 35 % (42.0-52.0); Hemoglobin (Hb) 11.9 g/dL (14.0-18.0); O2 Tension (PaO2), arterial 81.4 mmHg (80.0-100.0); Potassium - ABG Lab 3.73 mmol/L (3.70-5.30); Puncture Site LRA; RapidComm Collect By Udy, RRT; Temperature 30.6 C; pH, Arterial 7.485 (7.35-7.45)
[2023-08-21 04:54] LABS: Anion Gap 16 mmol/L (10-20); BUN (Urea Nitrogen) 20 mg/dL (8.9-20.6); Calc. Creatinine Clearance 182 mL/min (70-130); Calcium 8.7 mg/dL (7.8-10.44); Carbon Dioxide 24 mmol/L (22-29); Chloride 105 mmol/L (98-107); Estimated GFR 104; Glucose 140 mg/dL (70-105); Potassium 3.8 mmol/L (3.5-5.1); Sodium 141 mmol/L (136-145)
[2023-08-21] MEDS: Dexmedetomidine In 0.9 % NaCl 100 ML IVPB SCH ×3 (06:23→22:51)
[2023-08-21] MEDS: Famotidine/PF 20 mg/2ml Vial SLOW IVP SCH ×2 (08:31→20:03)
[2023-08-21 17:22] LABS: Vancomycin, Trough 14.2 ug/mL
[2023-08-21] MEDS: FENTANYL 2,000MCG/100-0.9%NACL 100 ML IVPB SCH (21:13)
[2023-08-22] MEDS: Dexmedetomidine In 0.9 % NaCl 100 ML IVPB SCH ×4 (02:06→20:46)
[2023-08-22] MEDS: Vancomycin 1.5 GRAM/300 ML BAG 1.5 GM in Premix 1 BAG IVPB SCH ×2 (02:09→09:05)
[2023-08-22] MEDS: Metoclopramide HCl 10 MG/2 ML VIAL IVP SCH ×2 (02:09→08:35)
[2023-08-22] MEDS: Ipratropium/Albuterol 3 ML NEB NEB SCH ×6 (02:20→22:48)
[2023-08-22 03:36] LABS: #Basophils 0.1 10x3/uL (0.0-0.2); #Eosinphils 0.4 10x3/uL (0.0-0.5); #Monocytes 1.6 10x3/uL (0.0-1.1); #Neutrophils 6.3 10x3/uL (1.5-8.4); %Basophils 0.8 % (0.0-2.0); %Eosinophils 3.7 % (0.0-6.0); %Lymphocytes 17.8 % (18.0-47.0); %Neutrophils 60.6 % (40.0-75.0); Hematocrit 34.3 % (38.8-50.0); Hemoglobin 10.9 g/dL (13.5-17.5); Mean Corpuscular HGB CONC 31.8 g/dL (32.0-36.0); Mean Corpuscular Hemoglobin 29.5 pg (27.0-33.0); Platelet Count 272 10x3/uL (150-450); RBC Distribution Width 14.6 % (11.5-14.5); Red Blood Cell (RBC) Count 3.69 10x6/uL (4.32-5.72); White Blood Cell (WBC) Count 10.4 10x3/uL (3.5-10.5)
[2023-08-22 03:52] LABS: Anion Gap 15 mmol/L (10-20); BUN (Urea Nitrogen) 21 mg/dL (8.9-20.6); Calc. Creatinine Clearance 179 mL/min (70-130); Calcium 8.8 mg/dL (7.8-10.44); Carbon Dioxide 23 mmol/L (22-29); Chloride 107 mmol/L (98-107); Estimated GFR 104; Glucose 116 mg/dL (70-105); Potassium 4.4 mmol/L (3.5-5.1); Sodium 141 mmol/L (136-145)
[2023-08-22] MEDS: Meropenem 1 GM in Sodium Chloride 0.9% 100 ML IVPB SCH ×3 (03:57→20:45)
[2023-08-22] MEDS: Famotidine/PF 20 mg/2ml Vial SLOW IVP SCH ×2 (08:35→20:46)
[2023-08-22] MEDS: Acetaminophen 325 MG TAB PO PRN (09:04)
[2023-08-22] MEDS ORDERED: Bisacodyl 10 MG SUPP PR PRN (09:11)
[2023-08-22] MEDS ORDERED: Bisacodyl 5 MG TAB PO PRN (09:12)
[2023-08-22] MEDS: Dexamethasone 4 mg/ml Vial SLOW IVP SCH ×3 (09:50→21:19)
[2023-08-22 09:51] LABS: Actual Bicarbonate (HCO3a) 26.5 mEq/L (22-28); Base Excess (BEa) 3.5 mEq/L (-2.0 to +3.0); CO2 Tension 34.9 mmHg (35.0-45.0); Calcium, Ionized (arterial) 1.15 mmol/L (1.12-1.30); Carboxyhemoglobin (COHb) 0.3 gm% (0.0-3.0); Hematocrit-ABG 36 % (42.0-52.0); Hemoglobin (Hb) 12.4 g/dL (14.0-18.0); O2 Tension (PaO2), arterial 97.8 mmHg (80.0-100.0); Potassium - ABG Lab 4.32 mmol/L (3.70-5.30); Puncture Site LBA; pH, Arterial 7.498 (7.35-7.45)
[2023-08-22 09:54] LABS: ALV-art Gradient 143.775 mmHg (0-20)
[2023-08-22 09:57] LABS: ALT (SGPT) 306 U/L (8-55); AST (SGOT) 231 U/L (5-34); Albumin 3.1 g/dL (3.5-5.0); Alkaline Phosphatase 195 U/L (40-110); Bilirubin, Direct 0.3 mg/dL (0.1-0.3); Bilirubin, Total 0.4 mg/dL (0.2-1.2); Protein, Total 6.3 g/dL (6.0-8.3)
[2023-08-22] MEDS: Nystatin 500,000 UNITS/5 ML UDCUP SSW SCH ×3 (12:10→20:46)
[2023-08-23] MEDS: Ibuprofen 800 MG TAB PO SCH ×2 (00:08→06:20)
[2023-08-23] MEDS: Ipratropium/Albuterol 3 ML NEB NEB SCH ×6 (02:34→22:55)
[2023-08-23] MEDS: Dexmedetomidine In 0.9 % NaCl 100 ML IVPB SCH ×4 (03:48→22:07)
[2023-08-23] MEDS: Dexamethasone 4 mg/ml Vial SLOW IVP SCH ×4 (04:14→22:07)
[2023-08-23] MEDS: Meropenem 1 GM in Sodium Chloride 0.9% 100 ML IVPB SCH ×3 (04:14→20:27)
[2023-08-23 04:30] LABS: ALV-art Gradient 159.875 mmHg (0-20); Base Excess (BEa) 2.8 mEq/L (-2.0 to +3.0); CO2 Tension 31.3 mmHg (35.0-45.0); Calcium, Ionized (arterial) 1.13 mmol/L (1.12-1.30); Carboxyhemoglobin (COHb) 0.3 gm% (0.0-3.0); Critical Notified By: Udy, RRT; Hematocrit-ABG 39 % (42.0-52.0); Hemoglobin (Hb) 13.2 g/dL (14.0-18.0); O2 Tension (PaO2), arterial 86.2 mmHg (80.0-100.0); Potassium - ABG Lab 3.98 mmol/L (3.70-5.30); Puncture Site LRA; RapidComm Collect By Udy, RRT
[2023-08-23 06:22] LABS: Lactic Acid 1.2 mmol/L (0.5-2.2)
[2023-08-23 06:29] LABS: ALT (SGPT) 420 U/L (8-55); AST (SGOT) 259 U/L (5-34); Albumin 3.6 g/dL (3.5-5.0); Alkaline Phosphatase 192 U/L (40-110); Anion Gap 20 mmol/L (10-20); BUN (Urea Nitrogen) 25 mg/dL (8.9-20.6); Bilirubin, Total 0.7 mg/dL (0.2-1.2); Calc. Creatinine Clearance 209 mL/min (70-130); Calcium 9.4 mg/dL (7.8-10.44); Carbon Dioxide 19 mmol/L (22-29); Chloride 104 mmol/L (98-107); Estimated GFR 112; Globulin 3.9 g/dL (2.4-3.5); Glucose 116 mg/dL (70-105); Magnesium 2.3 mg/dL (1.6-2.6); Potassium 4.4 mmol/L (3.5-5.1); Protein, Total 7.5 g/dL (6.0-8.3); Sodium 139 mmol/L (136-145)
[2023-08-23 06:31] LABS: ALT (SGPT) 419 U/L (8-55); AST (SGOT) 259 U/L (5-34); Albumin 3.6 g/dL (3.5-5.0); Alkaline Phosphatase 192 U/L (40-110); Bilirubin, Direct 0.3 mg/dL (0.1-0.3); Bilirubin, Total 0.7 mg/dL (0.2-1.2); CK (CPK) 62 U/L (30-200); Phosphorus 4.1 mg/dL (2.3-4.7); Protein, Total 7.4 g/dL (6.0-8.3)
[2023-08-23 06:32] LABS: Acetaminophen Less than 10 mcg/mL (10.0-30.0)
[2023-08-23] MEDS: Famotidine/PF 20 mg/2ml Vial SLOW IVP SCH ×2 (08:32→20:27)
[2023-08-23] MEDS: Nystatin 500,000 UNITS/5 ML UDCUP SSW SCH ×4 (08:33→20:27)
[2023-08-23] MEDS: Sodium Bicarbonate Tab 325 MG TAB PO SCH ×3 (10:05→20:28)
[2023-08-23] MEDS: Sodium Chloride 0.9% 1,000 ML IV SCH (10:05)
[2023-08-23] MEDS ORDERED: Mannitol 12.5 GM/50 ML SLOW IVP SCH (12:30)
[2023-08-23] MEDS: Ibuprofen 600 MG TAB PO SCH ×2 (13:00→22:07)
[2023-08-23] MEDS ORDERED: Ibuprofen 400 MG TAB PO SCH (14:00)
[2023-08-24] MEDS: Sodium Chloride 0.9% 1,000 ML IV SCH ×2 (00:31→15:00)
[2023-08-24] MEDS: Ipratropium/Albuterol 3 ML NEB NEB SCH ×6 (02:38→23:05)
[2023-08-24 03:13] LABS: Actual Bicarbonate (HCO3a) 23.5 mEq/L (22-28); CO2 Tension 34.6 mmHg (35.0-45.0); Calcium, Ionized (arterial) 1.21 mmol/L (1.12-1.30); Carboxyhemoglobin (COHb) 0.2 gm% (0.0-3.0); Hematocrit-ABG 43 % (42.0-52.0); Hemoglobin (Hb) 14.6 g/dL (14.0-18.0); O2 Tension (PaO2), arterial 97.1 mmHg (80.0-100.0); Potassium - ABG Lab 4.36 mmol/L (3.70-5.30); Puncture Site LRA; pH, Arterial 7.449 (7.35-7.45)
[2023-08-24] MEDS: Dexmedetomidine In 0.9 % NaCl 100 ML IVPB SCH ×4 (03:31→21:49)
[2023-08-24 04:08] LABS: INR-International Normal Ratio 1.1; PTT 29.6 sec (22.0-33.0); Prothrombin Time 11.3 sec (9.5-12.1)
[2023-08-24 04:12] LABS: Magnesium 2.3 mg/dL (1.6-2.6)
[2023-08-24] MEDS ORDERED: Meropenem 1 GM in Sodium Chloride 0.9% 100 ML IVPB SCH (06:00)
[2023-08-24] MEDS: Ibuprofen 600 MG TAB PO SCH (06:33)
[2023-08-24] MEDS: Dexamethasone 4 mg/ml Vial SLOW IVP SCH ×3 (06:34→17:01)
[2023-08-24] MEDS ORDERED: Ipratropium/Albuterol 3 ML NEB ONE (07:13)
[2023-08-24] MEDS: Nystatin 500,000 UNITS/5 ML UDCUP SSW SCH ×4 (08:31→22:14)
[2023-08-24] MEDS: Polyethylene Glycol 3350 17 GM Packet PER TUBE SCH (08:31)
[2023-08-24] MEDS: Sodium Bicarbonate Tab 325 MG TAB PO SCH ×3 (08:31→21:49)
[2023-08-24] MEDS: Famotidine/PF 20 mg/2ml Vial SLOW IVP SCH ×2 (08:31→21:49)
[2023-08-24 09:53] LABS: #Monocytes 0.8 10x3/uL (0.0-1.1); #Neutrophils 12.6 10x3/uL (1.5-8.4); %Basophils 0.1 % (0.0-2.0); %Lymphocytes 6.6 % (18.0-47.0); %Monocytes 5.2 % (0.0-10.0); %Neutrophils 87.2 % (40.0-75.0); Hematocrit 36.4 % (38.8-50.0); Mean Corpuscular Hemoglobin 29.7 pg (27.0-33.0); Mean Corpuscular Volume 90.1 fl (81.2-95.1); Mean Platelet Volume 12.6 fl (7.4-10.4); Platelet Count 446 10x3/uL (150-450); RBC Distribution Width 13.7 % (11.5-14.5); Red Blood Cell (RBC) Count 4.04 10x6/uL (4.32-5.72); White Blood Cell (WBC) Count 14.4 10x3/uL (3.5-10.5)
[2023-08-24 10:05] LABS: ALT (SGPT) 764 U/L (8-55); AST (SGOT) 341 U/L (5-34); Albumin 3.4 g/dL (3.5-5.0); Alkaline Phosphatase 185 U/L (40-110); Anion Gap 16 mmol/L (10-20); BUN (Urea Nitrogen) 31 mg/dL (8.9-20.6); Bilirubin, Total 0.5 mg/dL (0.2-1.2); Calc. Creatinine Clearance 196 mL/min (70-130); Calcium 9.1 mg/dL (7.8-10.44); Carbon Dioxide 23 mmol/L (22-29); Chloride 106 mmol/L (98-107); Estimated GFR 112; Globulin 3.4 g/dL (2.4-3.5); Glucose 149 mg/dL (70-105); Potassium 4.2 mmol/L (3.5-5.1); Protein, Total 6.8 g/dL (6.0-8.3); Sodium 141 mmol/L (136-145)
[2023-08-24] MEDS: HumaLOG 300 UNITS/3 ML VIAL SC PRN (16:12)
[2023-08-25] MEDS: Dexamethasone 4 mg/ml Vial SLOW IVP SCH ×5 (00:37→23:48)
[2023-08-25] MEDS: Ipratropium/Albuterol 3 ML NEB NEB SCH ×6 (03:40→23:45)
[2023-08-25] MEDS: Dexmedetomidine In 0.9 % NaCl 100 ML IVPB SCH ×3 (04:07→22:56)
[2023-08-25 04:18] LABS: ALT (SGPT) 874 U/L (8-55); AST (SGOT) 266 U/L (5-34); Albumin 3.4 g/dL (3.5-5.0); Alkaline Phosphatase 172 U/L (40-110); Anion Gap 16 mmol/L (10-20); BUN (Urea Nitrogen) 28 mg/dL (8.9-20.6); Bilirubin, Total 0.5 mg/dL (0.2-1.2); Calc. Creatinine Clearance 212 mL/min (70-130); Calcium 8.9 mg/dL (7.8-10.44); Carbon Dioxide 21 mmol/L (22-29); Chloride 106 mmol/L (98-107); Estimated GFR 115; Globulin 3.3 g/dL (2.4-3.5); Glucose 132 mg/dL (70-105); Magnesium 2.2 mg/dL (1.6-2.6); Phosphorus 3.2 mg/dL (2.3-4.7); Potassium 4.5 mmol/L (3.5-5.1); Protein, Total 6.7 g/dL (6.0-8.3); Sodium 138 mmol/L (136-145)
[2023-08-25 04:27] LABS: #Monocytes 0.7 10x3/uL (0.0-1.1); #Neutrophils 11.9 10x3/uL (1.5-8.4); %Basophils 0.1 % (0.0-2.0); %Lymphocytes 7.4 % (18.0-47.0); %Monocytes 5.4 % (0.0-10.0); %Neutrophils 86.5 % (40.0-75.0); Hematocrit 35.6 % (38.8-50.0); Hemoglobin 11.6 g/dL (13.5-17.5); Mean Corpuscular HGB CONC 32.6 g/dL (32.0-36.0); Mean Corpuscular Hemoglobin 29.5 pg (27.0-33.0); Mean Corpuscular Volume 90.6 fl (81.2-95.1); Mean Platelet Volume 12.6 fl (7.4-10.4); Platelet Count 467 10x3/uL (150-450); RBC Distribution Width 13.7 % (11.5-14.5); Red Blood Cell (RBC) Count 3.93 10x6/uL (4.32-5.72); White Blood Cell (WBC) Count 13.8 10x3/uL (3.5-10.5)
[2023-08-25] MEDS: Sodium Chloride 0.9% 1,000 ML IV SCH ×2 (05:45→17:48)
[2023-08-25] MEDS: Polyethylene Glycol 3350 17 GM Packet PER TUBE SCH (08:01)
[2023-08-25] MEDS: Nystatin 500,000 UNITS/5 ML UDCUP SSW SCH ×4 (08:01→20:32)
[2023-08-25] MEDS: Famotidine/PF 20 mg/2ml Vial SLOW IVP SCH ×2 (08:01→20:32)
[2023-08-25] MEDS: Sodium Bicarbonate Tab 325 MG TAB PO SCH ×3 (08:01→20:32)
[2023-08-25] MEDS ORDERED: Fentanyl BOLUS 250 ML IVPB PRN (11:47)
[2023-08-26 02:54] LABS: #Monocytes 0.9 10x3/uL (0.0-1.1); #Neutrophils 10.3 10x3/uL (1.5-8.4); %Basophils 0.1 % (0.0-2.0); %Lymphocytes 7.5 % (18.0-47.0); %Neutrophils 84.6 % (40.0-75.0); Hematocrit 36.8 % (38.8-50.0); Mean Corpuscular HGB CONC 32.6 g/dL (32.0-36.0); Mean Corpuscular Hemoglobin 29.3 pg (27.0-33.0); Mean Corpuscular Volume 89.8 fl (81.2-95.1); Mean Platelet Volume 12.5 fl (7.4-10.4); Platelet Count 533 10x3/uL (150-450); RBC Distribution Width 13.2 % (11.5-14.5); White Blood Cell (WBC) Count 12.2 10x3/uL (3.5-10.5)
[2023-08-26 03:06] LABS: ALT (SGPT) 811 U/L (8-55); AST (SGOT) 202 U/L (5-34); Albumin 3.5 g/dL (3.5-5.0); Alkaline Phosphatase 167 U/L (40-110); Anion Gap 14 mmol/L (10-20); BUN (Urea Nitrogen) 28 mg/dL (8.9-20.6); Bilirubin, Total 0.6 mg/dL (0.2-1.2); Calc. Creatinine Clearance 204 mL/min (70-130); Carbon Dioxide 21 mmol/L (22-29); Chloride 103 mmol/L (98-107); Estimated GFR 113; Globulin 3.3 g/dL (2.4-3.5); Glucose 164 mg/dL (70-105); Magnesium 2.2 mg/dL (1.6-2.6); Potassium 4.4 mmol/L (3.5-5.1); Protein, Total 6.8 g/dL (6.0-8.3); Sodium 134 mmol/L (136-145)
[2023-08-26] MEDS: Ipratropium/Albuterol 3 ML NEB NEB SCH ×6 (03:55→22:18)
[2023-08-26] MEDS: Dexmedetomidine In 0.9 % NaCl 100 ML IVPB SCH ×4 (05:08→23:22)
[2023-08-26] MEDS: Dexamethasone 4 mg/ml Vial SLOW IVP SCH ×4 (05:08→23:13)
[2023-08-26] MEDS: Famotidine/PF 20 mg/2ml Vial SLOW IVP SCH ×2 (08:47→21:02)
[2023-08-26] MEDS: Sodium Bicarbonate Tab 325 MG TAB PO SCH ×3 (08:47→21:02)
[2023-08-26] MEDS: Nystatin 500,000 UNITS/5 ML UDCUP SSW SCH ×4 (08:48→21:02)
[2023-08-26] MEDS: Polyethylene Glycol 3350 17 GM Packet PER TUBE SCH (08:48)
[2023-08-26] MEDS: Sodium Chloride 0.9% 1,000 ML IV SCH ×2 (08:49→23:13)
[2023-08-27] MEDS: Ipratropium/Albuterol 3 ML NEB NEB SCH ×6 (02:55→22:30)
[2023-08-27] MEDS: Dexamethasone 4 mg/ml Vial SLOW IVP SCH ×2 (05:43→17:19)
[2023-08-27] MEDS: Dexmedetomidine In 0.9 % NaCl 100 ML IVPB SCH ×3 (05:53→18:10)
[2023-08-27 05:58] LABS: #Monocytes 1.4 10x3/uL (0.0-1.1); #Neutrophils 13.5 10x3/uL (1.5-8.4); %Basophils 0.1 % (0.0-2.0); %Lymphocytes 8.5 % (18.0-47.0); %Monocytes 8.4 % (0.0-10.0); %Neutrophils 82.1 % (40.0-75.0); Hematocrit 38.7 % (38.8-50.0); Mean Corpuscular HGB CONC 33.6 g/dL (32.0-36.0); Mean Corpuscular Hemoglobin 29.8 pg (27.0-33.0); Mean Corpuscular Volume 88.8 fl (81.2-95.1); Mean Platelet Volume 12.7 fl (7.4-10.4); Platelet Count 647 10x3/uL (150-450); RBC Distribution Width 13.1 % (11.5-14.5); Red Blood Cell (RBC) Count 4.36 10x6/uL (4.32-5.72); White Blood Cell (WBC) Count 16.5 10x3/uL (3.5-10.5)
[2023-08-27 06:03] LABS: ALT (SGPT) 780 U/L (8-55); AST (SGOT) 143 U/L (5-34); Albumin 3.8 g/dL (3.5-5.0); Alkaline Phosphatase 181 U/L (40-110); Anion Gap 15 mmol/L (10-20); BUN (Urea Nitrogen) 27 mg/dL (8.9-20.6); Bilirubin, Total 0.7 mg/dL (0.2-1.2); Calc. Creatinine Clearance 203 mL/min (70-130); Calcium 9.2 mg/dL (7.8-10.44); Carbon Dioxide 22 mmol/L (22-29); Chloride 102 mmol/L (98-107); Estimated GFR 114; Globulin 3.3 g/dL (2.4-3.5); Glucose 152 mg/dL (70-105); Magnesium 2.1 mg/dL (1.6-2.6); Phosphorus 3.8 mg/dL (2.3-4.7); Potassium 4.3 mmol/L (3.5-5.1); Protein, Total 7.1 g/dL (6.0-8.3); Sodium 135 mmol/L (136-145)
[2023-08-27] MEDS: Nystatin 500,000 UNITS/5 ML UDCUP SSW SCH ×4 (08:11→21:43)
[2023-08-27] MEDS: Famotidine/PF 20 mg/2ml Vial SLOW IVP SCH ×2 (08:11→21:43)
[2023-08-27] MEDS: Sodium Bicarbonate Tab 325 MG TAB PO SCH ×3 (08:11→21:43)
[2023-08-27] MEDS: Polyethylene Glycol 3350 17 GM Packet PER TUBE SCH (08:11)
[2023-08-27] MEDS: Sodium Chloride 0.9% 1,000 ML IV SCH (12:18)
[2023-08-27] MEDS ORDERED: Dexamethasone 4 MG in Sodium Chloride 0.9% 50 ML IVPB SCH (21:00)
[2023-08-28] MEDS: Dexmedetomidine In 0.9 % NaCl 100 ML IVPB SCH ×2 (00:22→06:06)
[2023-08-28] MEDS: Ipratropium/Albuterol 3 ML NEB NEB SCH ×5 (01:30→18:45)
[2023-08-28] MEDS: Sodium Chloride 0.9% 1,000 ML IV SCH ×2 (02:50→15:18)
[2023-08-28 04:26] LABS: #Eosinphils 0.1 10x3/uL (0.0-0.5); #Neutrophils 12.2 10x3/uL (1.5-8.4); %Basophils 0.2 % (0.0-2.0); %Eosinophils 0.5 % (0.0-6.0); %Lymphocytes 13.2 % (18.0-47.0); %Monocytes 12.2 % (0.0-10.0); Hematocrit 39.2 % (38.8-50.0); Hemoglobin 12.9 g/dL (13.5-17.5); Mean Corpuscular HGB CONC 32.9 g/dL (32.0-36.0); Mean Corpuscular Hemoglobin 29.1 pg (27.0-33.0); Mean Corpuscular Volume 88.3 fl (81.2-95.1); Mean Platelet Volume 12.1 fl (7.4-10.4); Platelet Count 751 10x3/uL (150-450); RBC Distribution Width 13.4 % (11.5-14.5); Red Blood Cell (RBC) Count 4.44 10x6/uL (4.32-5.72); White Blood Cell (WBC) Count 16.7 10x3/uL (3.5-10.5)
[2023-08-28 04:33] LABS: ALT (SGPT) 658 U/L (8-55); AST (SGOT) 111 U/L (5-34); Albumin 3.8 g/dL (3.5-5.0); Alkaline Phosphatase 167 U/L (40-110); Anion Gap 14 mmol/L (10-20); BUN (Urea Nitrogen) 29 mg/dL (8.9-20.6); Bilirubin, Total 0.7 mg/dL (0.2-1.2); Calc. Creatinine Clearance 201 mL/min (70-130); Calcium 9.1 mg/dL (7.8-10.44); Carbon Dioxide 23 mmol/L (22-29); Chloride 102 mmol/L (98-107); Estimated GFR 114; Globulin 3.3 g/dL (2.4-3.5); Glucose 119 mg/dL (70-105); Potassium 4.1 mmol/L (3.5-5.1); Protein, Total 7.1 g/dL (6.0-8.3); Sodium 135 mmol/L (136-145)
[2023-08-28] MEDS: Dexamethasone 4 mg/ml Vial SLOW IVP SCH ×2 (05:07→17:03)
[2023-08-28] MEDS: Polyethylene Glycol 3350 17 GM Packet PER TUBE SCH (08:51)
[2023-08-28] MEDS: Nystatin 500,000 UNITS/5 ML UDCUP SSW SCH ×4 (08:51→20:25)
[2023-08-28] MEDS: Famotidine/PF 20 mg/2ml Vial SLOW IVP SCH ×2 (08:51→20:25)
[2023-08-28] MEDS: Sodium Bicarbonate Tab 325 MG TAB PO SCH ×3 (08:52→20:25)
[2023-08-28] MEDS: HumaLOG 300 UNITS/3 ML VIAL SC PRN (17:13)
[2023-08-29] MEDS: Ipratropium/Albuterol 3 ML NEB NEB SCH ×7 (00:33→21:18)
[2023-08-29 03:42] LABS: #Eosinphils 0.1 10x3/uL (0.0-0.5); #Monocytes 2.8 10x3/uL (0.0-1.1); #Neutrophils 14.9 10x3/uL (1.5-8.4); %Basophils 0.2 % (0.0-2.0); %Eosinophils 0.5 % (0.0-6.0); %Lymphocytes 9.2 % (18.0-47.0); %Monocytes 13.9 % (0.0-10.0); %Neutrophils 75.1 % (40.0-75.0); Hematocrit 41.5 % (38.8-50.0); Hemoglobin 13.7 g/dL (13.5-17.5); Mean Corpuscular Hemoglobin 29.6 pg (27.0-33.0); Mean Corpuscular Volume 89.6 fl (81.2-95.1); Mean Platelet Volume 12.2 fl (7.4-10.4); Platelet Count 754 10x3/uL (150-450); RBC Distribution Width 13.5 % (11.5-14.5); Red Blood Cell (RBC) Count 4.63 10x6/uL (4.32-5.72); White Blood Cell (WBC) Count 19.8 10x3/uL (3.5-10.5)
[2023-08-29 04:01] LABS: ALT (SGPT) 505 U/L (8-55); AST (SGOT) 63 U/L (5-34); Albumin 3.9 g/dL (3.5-5.0); Alkaline Phosphatase 169 U/L (40-110); Anion Gap 14 mmol/L (10-20); BUN (Urea Nitrogen) 25 mg/dL (8.9-20.6); Bilirubin, Total 0.8 mg/dL (0.2-1.2); Calc. Creatinine Clearance 212 mL/min (70-130); Calcium 9.4 mg/dL (7.8-10.44); Carbon Dioxide 24 mmol/L (22-29); Chloride 100 mmol/L (98-107); Estimated GFR 115; Globulin 3.5 g/dL (2.4-3.5); Glucose 125 mg/dL (70-105); Magnesium 2.2 mg/dL (1.6-2.6); Phosphorus 3.6 mg/dL (2.3-4.7); Potassium 4.2 mmol/L (3.5-5.1); Protein, Total 7.4 g/dL (6.0-8.3); Sodium 134 mmol/L (136-145)
[2023-08-29] MEDS: Morphine 2 MG/ML VIAL SLOW IVP PRN ×2 (04:43→05:45)
[2023-08-29] MEDS: Dexmedetomidine In 0.9 % NaCl 100 ML IVPB SCH ×7 (05:03→23:07)
[2023-08-29] MEDS: Dexamethasone 4 mg/ml Vial SLOW IVP SCH (05:04)
[2023-08-29] MEDS: FENTANYL 2,000MCG/100-0.9%NACL 100 ML IVPB SCH (05:48)
[2023-08-29] MEDS: Famotidine/PF 20 mg/2ml Vial SLOW IVP SCH ×2 (08:03→20:48)
[2023-08-29] MEDS: Polyethylene Glycol 3350 17 GM Packet PER TUBE SCH (08:04)
[2023-08-29] MEDS: Nystatin 500,000 UNITS/5 ML UDCUP SSW SCH ×4 (08:04→20:48)
[2023-08-29] MEDS: Sodium Chloride 0.9% 1,000 ML IV SCH ×2 (08:04→20:24)
[2023-08-29] MEDS: Sodium Bicarbonate Tab 325 MG TAB PO SCH ×3 (08:04→20:48)
[2023-08-30] MEDS: Dexmedetomidine In 0.9 % NaCl 100 ML IVPB SCH ×5 (02:10→20:30)
[2023-08-30] MEDS: Ipratropium/Albuterol 3 ML NEB NEB SCH ×6 (03:02→22:15)
[2023-08-30] MEDS: Famotidine/PF 20 mg/2ml Vial SLOW IVP SCH ×2 (07:24→20:36)
[2023-08-30] MEDS: Sodium Bicarbonate Tab 325 MG TAB PO SCH ×3 (07:24→20:36)
[2023-08-30] MEDS: Polyethylene Glycol 3350 17 GM Packet PER TUBE SCH (07:25)
[2023-08-30] MEDS: Nystatin 500,000 UNITS/5 ML UDCUP SSW SCH ×4 (07:31→20:36)
[2023-08-30] MEDS: Oxacillin 2 GM in Sodium Chloride 0.9% 100 ML IVPB SCH ×3 (08:50→20:36)
[2023-08-30] MEDS: Sodium Chloride 0.9% 1,000 ML IV SCH (11:01)
[2023-08-30] MEDS: FENTANYL 2,000MCG/100-0.9%NACL 100 ML IVPB SCH (15:05)
[2023-08-31] MEDS: Dexmedetomidine In 0.9 % NaCl 100 ML IVPB SCH ×7 (00:49→23:35)
[2023-08-31] MEDS: Oxacillin 2 GM in Sodium Chloride 0.9% 100 ML IVPB SCH ×4 (02:24→20:11)
[2023-08-31] MEDS: Sodium Chloride 0.9% 1,000 ML IV SCH ×2 (02:24→17:06)
[2023-08-31] MEDS: Ipratropium/Albuterol 3 ML NEB NEB SCH ×6 (03:03→22:55)
[2023-08-31 04:17] LABS: ALT (SGPT) 370 U/L (8-55); AST (SGOT) 130 U/L (5-34); Albumin 3.2 g/dL (3.5-5.0); Alkaline Phosphatase 202 U/L (40-110); Anion Gap 19 mmol/L (10-20); BUN (Urea Nitrogen) 21 mg/dL (8.9-20.6); Bilirubin, Total 0.9 mg/dL (0.2-1.2); Calc. Creatinine Clearance 245 mL/min (70-130); Calcium 9.3 mg/dL (7.8-10.44); Carbon Dioxide 19 mmol/L (22-29); Chloride 105 mmol/L (98-107); Estimated GFR 121; Globulin 3.6 g/dL (2.4-3.5); Glucose 110 mg/dL (70-105); Magnesium 2.2 mg/dL (1.6-2.6); Phosphorus 3.9 mg/dL (2.3-4.7); Protein, Total 6.8 g/dL (6.0-8.3); Sodium 137 mmol/L (136-145)
[2023-08-31 04:19] LABS: Potassium 6.4 mmol/L (3.5-5.1)
[2023-08-31 04:33] LABS: Delete Auto Diff?? YES
[2023-08-31 04:35] LABS: Band 11 % (5-11); Eosinophils 5 % (0-10); Lymphocytes 6 % (21-51); Metamyelocyte 1 % (0-0); Monocytes 12 % (0-10); Myelocyte 1 % (0-0); RBC Morph Comment Within Normal Limits
[2023-08-31 04:36] LABS: Hematocrit 38.3 % (38.8-50.0); Hemoglobin 12.6 g/dL (13.5-17.5); Mean Corpuscular HGB CONC 32.9 g/dL (32.0-36.0); Mean Corpuscular Hemoglobin 29.5 pg (27.0-33.0); Mean Corpuscular Volume 89.7 fl (81.2-95.1); Mean Platelet Volume 12.2 fl (7.4-10.4); Neutrophil 64 % (42-75); Platelet Adequacy Comment Appears Increased; Platelet Count 548 10x3/uL (150-450); RBC Distribution Width 13.6 % (11.5-14.5); Red Blood Cell (RBC) Count 4.27 10x6/uL (4.32-5.72); White Blood Cell (WBC) Count 18.1 10x3/uL (3.5-10.5)
[2023-08-31 05:30] LABS: Anion Gap 15 mmol/L (10-20); BUN (Urea Nitrogen) 19 mg/dL (8.9-20.6); Calc. Creatinine Clearance 218 mL/min (70-130); Calcium 9.4 mg/dL (7.8-10.44); Carbon Dioxide 26 mmol/L (22-29); Chloride 101 mmol/L (98-107); Estimated GFR 117; Glucose 111 mg/dL (70-105); Potassium 4.4 mmol/L (3.5-5.1); Sodium 138 mmol/L (136-145)
[2023-08-31] MEDS: Polyethylene Glycol 3350 17 GM Packet PER TUBE SCH (08:38)
[2023-08-31] MEDS: Famotidine/PF 20 mg/2ml Vial SLOW IVP SCH ×2 (08:38→20:07)
[2023-08-31] MEDS: Nystatin 500,000 UNITS/5 ML UDCUP SSW SCH ×4 (08:38→20:10)
[2023-08-31] MEDS: Sodium Bicarbonate Tab 325 MG TAB PO SCH ×3 (08:38→20:10)
[2023-09-01] MEDS: Ipratropium/Albuterol 3 ML NEB NEB SCH ×6 (03:20→23:10)
[2023-09-01] MEDS: Dexmedetomidine In 0.9 % NaCl 100 ML IVPB SCH ×2 (03:33→08:12)
[2023-09-01] MEDS: Oxacillin 2 GM in Sodium Chloride 0.9% 100 ML IVPB SCH ×4 (03:35→20:28)
[2023-09-01 03:45] LABS: Anion Gap 14 mmol/L (10-20); BUN (Urea Nitrogen) 23 mg/dL (8.9-20.6); Calc. Creatinine Clearance 224 mL/min (70-130); Calcium 8.8 mg/dL (7.8-10.44); Carbon Dioxide 26 mmol/L (22-29); Chloride 104 mmol/L (98-107); Estimated GFR 118; Glucose 134 mg/dL (70-105); Potassium 4.6 mmol/L (3.5-5.1); Sodium 139 mmol/L (136-145)
[2023-09-01] MEDS: Sodium Bicarbonate Tab 325 MG TAB PO SCH (08:50)
[2023-09-01] MEDS: Famotidine/PF 20 mg/2ml Vial SLOW IVP SCH ×2 (08:50→20:28)
[2023-09-01] MEDS: Nystatin 500,000 UNITS/5 ML UDCUP SSW SCH ×2 (08:50→12:07)
[2023-09-01] MEDS: Polyethylene Glycol 3350 17 GM Packet PER TUBE SCH (08:50)
[2023-09-01] MEDS: Sodium Chloride 0.9% 1,000 ML IV SCH ×2 (08:52→14:50)
[2023-09-01] MEDS: Scopolamine 1 mg/72 hour Patch TD SCH (09:40)
[2023-09-01] MEDS ORDERED: Morphine 2 MG/ML VIAL SLOW IVP PRN ×2 (13:56→14:30)
[2023-09-01] MEDS ORDERED: Lorazepam 2 MG/ML VIAL SLOW IVP PRN ×2 (13:57→14:30)
[2023-09-01] MEDS ORDERED: Dextrose 5%-Lactated Ringers 1,000 ML IV SCH (14:00)
[2023-09-01] MEDS ORDERED: Ventilator Sedation Protocol FS PRN (14:18)
[2023-09-01] MEDS ORDERED: Fentanyl BOLUS 250 ML IVPB PRN (14:30)
[2023-09-01] MEDS ORDERED: FENTANYL 2,000MCG/100-0.9%NACL 100 ML IVPB SCH (14:30)
[2023-09-01] MEDS ORDERED: Propofol 1,000 MG/100 ML VIAL IV PRN (14:30)
[2023-09-01] MEDS ORDERED: Propofol BOLUS 1,000 MG/100 ML VIAL IV PRN (14:30)
[2023-09-01] MEDS: DEXMEDETOMIDINE IVPB SCH ×2 (17:25→22:13)
[2023-09-01] MEDS: NACL IVPB SCH ×2 (17:25→22:13)
[2023-09-02] MEDS: Sodium Chloride 0.9% 1,000 ML IV SCH (02:30)
[2023-09-02] MEDS: Oxacillin 2 GM in Sodium Chloride 0.9% 100 ML IVPB SCH ×4 (02:34→20:19)
[2023-09-02] MEDS: Ipratropium/Albuterol 3 ML NEB NEB SCH ×6 (02:45→23:00)
[2023-09-02] MEDS: NACL IVPB SCH ×2 (03:55→06:52)
[2023-09-02] MEDS: DEXMEDETOMIDINE IVPB SCH ×2 (03:55→06:52)
[2023-09-02] MEDS: Famotidine/PF 20 mg/2ml Vial SLOW IVP SCH ×2 (07:42→20:19)
[2023-09-02] MEDS ORDERED: Acetaminophen 650 MG/20.3 ML UDCUP PER TUBE PRN (08:48)
[2023-09-02] MEDS ORDERED: Acetaminophen 650 MG Suppository PR PRN (10:26)
[2023-09-02] MEDS ORDERED: DC Sedation Protocol FS ONE (10:27)
[2023-09-02] MEDS: Dextrose 5%-Lactated Ringers 1,000 ML IV SCH (10:41)
[2023-09-02] MEDS: Multivit, Therapeutic 1 TAB PER TUBE SCH (20:19)
[2023-09-02] MEDS: Cyanocobalamin (Vitamin B-12) 1,000 MCG TAB PER TUBE SCH (20:19)
[2023-09-02] MEDS: Thiamine 100 MG TAB PER TUBE SCH (20:20)
[2023-09-02] MEDS: Cholecalciferol 1,000 UNITS (25 MCG) TAB PO SCH (20:20)
[2023-09-02] MEDS: Polyethylene Glycol 3350 17 GM Packet PER TUBE SCH (20:20)
[2023-09-03] MEDS: Dextrose 5%-Lactated Ringers 1,000 ML IV SCH ×2 (02:26→13:57)
[2023-09-03] MEDS: Ipratropium/Albuterol 3 ML NEB NEB SCH ×6 (03:00→22:24)
[2023-09-03] MEDS: Oxacillin 2 GM in Sodium Chloride 0.9% 100 ML IVPB SCH ×4 (03:25→21:01)
[2023-09-03 04:15] LABS: #Basophils 0.1 10x3/uL (0.0-0.2); #Eosinphils 0.1 10x3/uL (0.0-0.5); #Monocytes 1.6 10x3/uL (0.0-1.1); #Neutrophils 8.5 10x3/uL (1.5-8.4); %Basophils 0.6 % (0.0-2.0); %Eosinophils 1.1 % (0.0-6.0); %Lymphocytes 11.5 % (18.0-47.0); %Monocytes 13.2 % (0.0-10.0); %Neutrophils 72.5 % (40.0-75.0); Hematocrit 33.4 % (38.8-50.0); Hemoglobin 10.9 g/dL (13.5-17.5); Mean Corpuscular HGB CONC 32.6 g/dL (32.0-36.0); Mean Corpuscular Hemoglobin 29.9 pg (27.0-33.0); Mean Corpuscular Volume 91.5 fl (81.2-95.1); Mean Platelet Volume 11.9 fl (7.4-10.4); Platelet Count 503 10x3/uL (150-450); RBC Distribution Width 13.8 % (11.5-14.5); Red Blood Cell (RBC) Count 3.65 10x6/uL (4.32-5.72); White Blood Cell (WBC) Count 11.7 10x3/uL (3.5-10.5)
[2023-09-03 04:35] LABS: ALT (SGPT) 404 U/L (8-55); AST (SGOT) 94 U/L (5-34); Albumin 3.1 g/dL (3.5-5.0); Alkaline Phosphatase 295 U/L (40-110); Anion Gap 15 mmol/L (10-20); BUN (Urea Nitrogen) 14 mg/dL (8.9-20.6); Bilirubin, Total 1.2 mg/dL (0.2-1.2); Calc. Creatinine Clearance 218 mL/min (70-130); Calcium 8.9 mg/dL (7.8-10.44); Carbon Dioxide 24 mmol/L (22-29); Chloride 104 mmol/L (98-107); Estimated GFR 118; Globulin 3.6 g/dL (2.4-3.5); Glucose 111 mg/dL (70-105); Magnesium 2.1 mg/dL (1.6-2.6); Phosphorus 3.2 mg/dL (2.3-4.7); Potassium 4.1 mmol/L (3.5-5.1); Protein, Total 6.7 g/dL (6.0-8.3); Sodium 139 mmol/L (136-145)
[2023-09-03] MEDS: Famotidine/PF 20 mg/2ml Vial SLOW IVP SCH ×2 (08:50→21:00)
[2023-09-03] MEDS: Metoprolol Tartrate 5 MG/5 ML VIAL IVP SCH ×2 (09:31→16:27)
[2023-09-03] MEDS: Thiamine HCl 200 MG/2 ML VIAL SLOW IVP SCH (21:01)
[2023-09-04] MEDS: Metoprolol Tartrate 5 MG/5 ML VIAL IVP SCH ×3 (00:38→17:08)
[2023-09-04] MEDS: Ipratropium/Albuterol 3 ML NEB NEB SCH ×6 (02:51→22:01)
[2023-09-04] MEDS: Dextrose 5%-Lactated Ringers 1,000 ML IV SCH (03:59)
[2023-09-04] MEDS: Oxacillin 2 GM in Sodium Chloride 0.9% 100 ML IVPB SCH ×4 (04:00→20:11)
[2023-09-04 04:41] LABS: #Basophils 0.1 10x3/uL (0.0-0.2); #Eosinphils 0.2 10x3/uL (0.0-0.5); #Monocytes 1.8 10x3/uL (0.0-1.1); #Neutrophils 8.3 10x3/uL (1.5-8.4); %Eosinophils 1.3 % (0.0-6.0); %Lymphocytes 13.4 % (18.0-47.0); %Monocytes 14.7 % (0.0-10.0); %Neutrophils 67.9 % (40.0-75.0); Hematocrit 37.7 % (38.8-50.0); Hemoglobin 12.3 g/dL (13.5-17.5); Mean Corpuscular HGB CONC 32.6 g/dL (32.0-36.0); Mean Corpuscular Hemoglobin 29.7 pg (27.0-33.0); Mean Corpuscular Volume 91.1 fl (81.2-95.1); Mean Platelet Volume 11.5 fl (7.4-10.4); Platelet Count 494 10x3/uL (150-450); Red Blood Cell (RBC) Count 4.14 10x6/uL (4.32-5.72); White Blood Cell (WBC) Count 12.3 10x3/uL (3.5-10.5)
[2023-09-04 04:52] LABS: ALT (SGPT) 379 U/L (8-55); AST (SGOT) 105 U/L (5-34); Albumin 3.2 g/dL (3.5-5.0); Alkaline Phosphatase 282 U/L (40-110); Anion Gap 15 mmol/L (10-20); BUN (Urea Nitrogen) 14 mg/dL (8.9-20.6); Bilirubin, Total 1.2 mg/dL (0.2-1.2); Calc. Creatinine Clearance 219 mL/min (70-130); Calcium 9.2 mg/dL (7.8-10.44); Carbon Dioxide 25 mmol/L (22-29); Chloride 103 mmol/L (98-107); Estimated GFR 118; Globulin 3.8 g/dL (2.4-3.5); Glucose 110 mg/dL (70-105); Magnesium 2.2 mg/dL (1.6-2.6); Phosphorus 3.5 mg/dL (2.3-4.7); Potassium 3.9 mmol/L (3.5-5.1); Sodium 139 mmol/L (136-145)
[2023-09-04] MEDS: D5W-AA 4.25% with LYTES 1,000 ML IV SCH (08:23)
[2023-09-04] MEDS: Famotidine/PF 20 mg/2ml Vial SLOW IVP SCH ×2 (08:41→20:11)
[2023-09-04] MEDS: Scopolamine 1 mg/72 hour Patch TD SCH (10:21)
[2023-09-04] MEDS: Thiamine HCl 200 MG/2 ML VIAL SLOW IVP SCH (20:11)
[2023-09-05] MEDS: Metoprolol Tartrate 5 MG/5 ML VIAL IVP SCH ×3 (00:48→16:38)
[2023-09-05] MEDS: Ipratropium/Albuterol 3 ML NEB NEB SCH ×6 (01:58→22:35)
[2023-09-05] MEDS: Oxacillin 2 GM in Sodium Chloride 0.9% 100 ML IVPB SCH ×4 (02:33→20:42)
[2023-09-05 04:19] LABS: ALT (SGPT) 310 U/L (8-55); AST (SGOT) 79 U/L (5-34); Albumin 3.2 g/dL (3.5-5.0); Alkaline Phosphatase 251 U/L (40-110); Anion Gap 16 mmol/L (10-20); BUN (Urea Nitrogen) 16 mg/dL (8.9-20.6); Calc. Creatinine Clearance 200 mL/min (70-130); Carbon Dioxide 23 mmol/L (22-29); Chloride 104 mmol/L (98-107); Estimated GFR 116; Globulin 3.7 g/dL (2.4-3.5); Glucose 113 mg/dL (70-105); Magnesium 2.2 mg/dL (1.6-2.6); Potassium 4.1 mmol/L (3.5-5.1); Protein, Total 6.9 g/dL (6.0-8.3); Sodium 139 mmol/L (136-145)
[2023-09-05 04:38] LABS: #Basophils 0.1 10x3/uL (0.0-0.2); #Eosinphils 0.3 10x3/uL (0.0-0.5); #Monocytes 1.3 10x3/uL (0.0-1.1); #Neutrophils 8.6 10x3/uL (1.5-8.4); %Basophils 1.1 % (0.0-2.0); %Eosinophils 2.3 % (0.0-6.0); %Monocytes 11.1 % (0.0-10.0); Hematocrit 36.3 % (38.8-50.0); Hemoglobin 11.5 g/dL (13.5-17.5); Mean Corpuscular HGB CONC 31.7 g/dL (32.0-36.0); Mean Corpuscular Hemoglobin 28.8 pg (27.0-33.0); Mean Platelet Volume 11.1 fl (7.4-10.4); Platelet Count 505 10x3/uL (150-450); Red Blood Cell (RBC) Count 3.99 10x6/uL (4.32-5.72)
[2023-09-05] MEDS: D5W-AA 4.25% with LYTES 1,000 ML IV SCH (06:22)
[2023-09-05] MEDS: Famotidine/PF 20 mg/2ml Vial SLOW IVP SCH ×2 (07:54→20:42)
[2023-09-05] MEDS: Acetaminophen 650 MG Suppository PR PRN (13:15)
[2023-09-05] MEDS: Thiamine HCl 200 MG/2 ML VIAL SLOW IVP SCH (20:42)
[2023-09-06] MEDS: D5W-AA 4.25% with LYTES 1,000 ML IV SCH ×2 (00:23→20:14)
[2023-09-06] MEDS: Metoprolol Tartrate 5 MG/5 ML VIAL IVP SCH ×3 (00:23→18:19)
[2023-09-06] MEDS: Ipratropium/Albuterol 3 ML NEB NEB SCH ×6 (02:48→22:16)
[2023-09-06] MEDS: Oxacillin 2 GM in Sodium Chloride 0.9% 100 ML IVPB SCH ×4 (03:53→20:03)
[2023-09-06 04:00] LABS: Anion Gap 15 mmol/L (10-20); BUN (Urea Nitrogen) 17 mg/dL (8.9-20.6); Calc. Creatinine Clearance 214 mL/min (70-130); Calcium 9.1 mg/dL (7.8-10.44); Carbon Dioxide 23 mmol/L (22-29); Chloride 104 mmol/L (98-107); Estimated GFR 119; Glucose 109 mg/dL (70-105); Potassium 4.4 mmol/L (3.5-5.1); Sodium 138 mmol/L (136-145)
[2023-09-06 04:09] LABS: #Basophils 0.2 10x3/uL (0.0-0.2); #Eosinphils 0.3 10x3/uL (0.0-0.5); #Monocytes 1.2 10x3/uL (0.0-1.1); #Neutrophils 9.1 10x3/uL (1.5-8.4); %Basophils 1.2 % (0.0-2.0); %Eosinophils 2.6 % (0.0-6.0); %Monocytes 9.3 % (0.0-10.0); %Neutrophils 72.5 % (40.0-75.0); Hematocrit 37.3 % (38.8-50.0); Hemoglobin 12.1 g/dL (13.5-17.5); Mean Corpuscular HGB CONC 32.4 g/dL (32.0-36.0); Mean Corpuscular Hemoglobin 29.4 pg (27.0-33.0); Mean Corpuscular Volume 90.5 fl (81.2-95.1); Mean Platelet Volume 11.4 fl (7.4-10.4); Platelet Count 467 10x3/uL (150-450); RBC Distribution Width 14.1 % (11.5-14.5); Red Blood Cell (RBC) Count 4.12 10x6/uL (4.32-5.72); White Blood Cell (WBC) Count 12.5 10x3/uL (3.5-10.5)
[2023-09-06] MEDS: Famotidine/PF 20 mg/2ml Vial SLOW IVP SCH ×2 (07:50→20:14)
[2023-09-06] MEDS: Acetaminophen 650 MG Suppository PR PRN (15:46)
[2023-09-06] MEDS: Thiamine HCl 200 MG/2 ML VIAL SLOW IVP SCH (20:03)
[2023-09-07] MEDS: Metoprolol Tartrate 5 MG/5 ML VIAL IVP SCH ×4 (00:25→17:05)
[2023-09-07] MEDS: Ipratropium/Albuterol 3 ML NEB NEB SCH ×5 (02:25→18:30)
[2023-09-07] MEDS: Oxacillin 2 GM in Sodium Chloride 0.9% 100 ML IVPB SCH ×4 (04:35→20:36)
[2023-09-07] MEDS: Scopolamine 1 mg/72 hour Patch TD SCH (08:07)
[2023-09-07] MEDS: Famotidine/PF 20 mg/2ml Vial SLOW IVP SCH ×2 (08:08→20:37)
[2023-09-07] MEDS: D5W-AA 4.25% with LYTES 1,000 ML IV SCH (17:05)
[2023-09-07] MEDS ORDERED: Ipratropium/Albuterol 3 ML NEB NEB PRN (20:27)
[2023-09-07] MEDS: Thiamine HCl 200 MG/2 ML VIAL SLOW IVP SCH (20:37)
[2023-09-08] MEDS: Metoprolol Tartrate 5 MG/5 ML VIAL IVP SCH ×3 (03:12→17:11)
[2023-09-08] MEDS: Oxacillin 2 GM in Sodium Chloride 0.9% 100 ML IVPB SCH ×4 (03:18→21:17)
[2023-09-08 04:10] LABS: #Basophils 0.2 10x3/uL (0.0-0.2); #Eosinphils 0.5 10x3/uL (0.0-0.5); #Monocytes 1.1 10x3/uL (0.0-1.1); #Neutrophils 10.1 10x3/uL (1.5-8.4); %Basophils 1.1 % (0.0-2.0); %Eosinophils 3.4 % (0.0-6.0); %Lymphocytes 11.2 % (18.0-47.0); %Monocytes 7.8 % (0.0-10.0); %Neutrophils 75.2 % (40.0-75.0); Hematocrit 38.1 % (38.8-50.0); Hemoglobin 12.5 g/dL (13.5-17.5); Mean Corpuscular HGB CONC 32.8 g/dL (32.0-36.0); Mean Corpuscular Hemoglobin 29.4 pg (27.0-33.0); Mean Corpuscular Volume 89.6 fl (81.2-95.1); Mean Platelet Volume 11.3 fl (7.4-10.4); Platelet Count 356 10x3/uL (150-450); RBC Distribution Width 14.1 % (11.5-14.5); Red Blood Cell (RBC) Count 4.25 10x6/uL (4.32-5.72); White Blood Cell (WBC) Count 13.5 10x3/uL (3.5-10.5)
[2023-09-08 04:29] LABS: Anion Gap 16 mmol/L (10-20); BUN (Urea Nitrogen) 18 mg/dL (8.9-20.6); Calc. Creatinine Clearance 220 mL/min (70-130); Calcium 8.9 mg/dL (7.8-10.44); Carbon Dioxide 22 mmol/L (22-29); Chloride 102 mmol/L (98-107); Estimated GFR 121; Glucose 104 mg/dL (70-105); Potassium 4.3 mmol/L (3.5-5.1); Sodium 136 mmol/L (136-145)
[2023-09-08] MEDS: Famotidine/PF 20 mg/2ml Vial SLOW IVP SCH ×2 (08:35→21:19)
[2023-09-08] MEDS: Thiamine HCl 200 MG/2 ML VIAL SLOW IVP SCH (21:18)
[2023-09-08] MEDS: Acetaminophen 650 MG Suppository PR PRN (22:26)
[2023-09-09] MEDS: Metoprolol Tartrate 5 MG/5 ML VIAL IVP SCH ×4 (01:56→18:43)
[2023-09-09] MEDS: Oxacillin 2 GM in Sodium Chloride 0.9% 100 ML IVPB SCH ×3 (03:10→16:00)
[2023-09-09] MEDS: Famotidine/PF 20 mg/2ml Vial SLOW IVP SCH ×2 (08:24→22:42)
[2023-09-09] MEDS: Thiamine HCl 200 MG/2 ML VIAL SLOW IVP SCH (22:42)
[2023-09-10] MEDS: Metoprolol Tartrate 5 MG/5 ML VIAL IVP SCH ×3 (01:49→18:20)
[2023-09-10 06:37] LABS: #Basophils 0.1 10x3/uL (0.0-0.2); #Eosinphils 0.4 10x3/uL (0.0-0.5); #Monocytes 1.2 10x3/uL (0.0-1.1); #Neutrophils 9.9 10x3/uL (1.5-8.4); %Eosinophils 3.2 % (0.0-6.0); %Lymphocytes 12.6 % (18.0-47.0); %Monocytes 8.8 % (0.0-10.0); %Neutrophils 73.2 % (40.0-75.0); Hematocrit 40.8 % (38.8-50.0); Hemoglobin 13.5 g/dL (13.5-17.5); Mean Corpuscular HGB CONC 33.1 g/dL (32.0-36.0); Mean Corpuscular Hemoglobin 29.2 pg (27.0-33.0); Mean Corpuscular Volume 88.3 fl (81.2-95.1); Platelet Count 359 10x3/uL (150-450); RBC Distribution Width 13.9 % (11.5-14.5); Red Blood Cell (RBC) Count 4.62 10x6/uL (4.32-5.72); White Blood Cell (WBC) Count 13.5 10x3/uL (3.5-10.5)
[2023-09-10 06:44] LABS: Anion Gap 16 mmol/L (10-20); BUN (Urea Nitrogen) 18 mg/dL (8.9-20.6); Calc. Creatinine Clearance 219 mL/min (70-130); Calcium 9.4 mg/dL (7.8-10.44); Carbon Dioxide 23 mmol/L (22-29); Chloride 103 mmol/L (98-107); Estimated GFR 119; Glucose 96 mg/dL (70-105); Potassium 4.3 mmol/L (3.5-5.1); Sodium 138 mmol/L (136-145)
[2023-09-10] MEDS ORDERED: CEFAZOLIN 2 GM in Sodium Chloride 0.9% 100 ML IVPB SCH ×2 (09:30→15:15)
[2023-09-10] MEDS: Famotidine/PF 20 mg/2ml Vial SLOW IVP SCH ×2 (09:52→21:02)
[2023-09-10] MEDS: Scopolamine 1 mg/72 hour Patch TD SCH (09:52)
[2023-09-10] MEDS ORDERED: Midazolam HCl 2 mg/2 ml Vial ONE (14:21)
[2023-09-10] MEDS ORDERED: KETAMINE 100 MG/ML (5ML VIAL) ONE (14:22)
[2023-09-10] MEDS ORDERED: CEFAZOLIN 2 GM VIAL ONE (15:00)
[2023-09-10] MEDS: D5W-AA 4.25% with LYTES 1,000 ML IV SCH (19:54)
[2023-09-10] MEDS: Thiamine HCl 200 MG/2 ML VIAL SLOW IVP SCH (21:05)
[2023-09-11] MEDS: Metoprolol Tartrate 5 MG/5 ML VIAL IVP SCH ×3 (02:32→17:56)
[2023-09-11] MEDS: Famotidine/PF 20 mg/2ml Vial SLOW IVP SCH ×2 (09:31→20:24)
[2023-09-11] MEDS: Thiamine HCl 200 MG/2 ML VIAL SLOW IVP SCH (20:24)
[2023-09-11] MEDS: D5W-AA 4.25% with LYTES 1,000 ML IV SCH (20:25)
[2023-09-12] MEDS: Metoprolol Tartrate 5 MG/5 ML VIAL IVP SCH ×3 (00:41→16:52)
[2023-09-12] MEDS: Famotidine/PF 20 mg/2ml Vial SLOW IVP SCH ×2 (08:14→20:54)
[2023-09-12] MEDS ORDERED: EPINEPHrine 1 MG/ML VIAL ONE (13:08)
[2023-09-12] MEDS ORDERED: Bupivacaine PF 0.5% 30 ML VIAL ONE (13:08)
[2023-09-12] MEDS ORDERED: Succinylcholine 200 MG/10 ml SYRINGE FS ONE (13:16)
[2023-09-12] MEDS ORDERED: Lidocaine 2% PF 5 ML VIAL ONE (13:16)
[2023-09-12] MEDS ORDERED: Rocuronium Bromide 10 MG/ML (10ML VIAL) ONE (13:16)
[2023-09-12] MEDS ORDERED: PROPOFOL 20 ML ONE (13:17)
[2023-09-12] MEDS ORDERED: CEFAZOLIN 2 GM VIAL ONE (13:17)
[2023-09-12] MEDS ORDERED: fentaNYL 50 mcg/mL 1 mL Vial ONE (13:17)
[2023-09-12] MEDS: Acetaminophen 650 MG Suppository PR PRN (20:02)
[2023-09-12] MEDS: Thiamine HCl 200 MG/2 ML VIAL SLOW IVP SCH (20:53)
[2023-09-12] MEDS: Cholecalciferol 1,000 UNITS (25 MCG) TAB PO SCH (23:41)
[2023-09-12] MEDS: Cyanocobalamin (Vitamin B-12) 1,000 MCG TAB PER TUBE SCH (23:41)
[2023-09-12] MEDS: Multivit, Therapeutic 1 TAB PER TUBE SCH (23:41)
[2023-09-12] MEDS: Thiamine 100 MG TAB PER TUBE SCH (23:42)
[2023-09-12] MEDS: Polyethylene Glycol 3350 17 GM Packet PER TUBE SCH (23:42)
[2023-09-13] MEDS: D5W-AA 4.25% with LYTES 1,000 ML IV SCH ×2 (00:15→22:56)
[2023-09-13] MEDS: Metoprolol Tartrate 5 MG/5 ML VIAL IVP SCH ×2 (00:22→09:01)
[2023-09-13 04:58] LABS: #Basophils 0.1 10x3/uL (0.0-0.2); #Eosinphils 0.1 10x3/uL (0.0-0.5); %Basophils 0.6 % (0.0-2.0); %Eosinophils 0.5 % (0.0-6.0); %Lymphocytes 10.5 % (18.0-47.0); %Monocytes 10.3 % (0.0-10.0); %Neutrophils 77.3 % (40.0-75.0); Hematocrit 42.4 % (38.8-50.0); Hemoglobin 14.2 g/dL (13.5-17.5); Mean Corpuscular HGB CONC 33.5 g/dL (32.0-36.0); Mean Corpuscular Hemoglobin 29.6 pg (27.0-33.0); Mean Corpuscular Volume 88.3 fl (81.2-95.1); Mean Platelet Volume 11.7 fl (7.4-10.4); Platelet Count 466 10x3/uL (150-450); RBC Distribution Width 13.7 % (11.5-14.5); White Blood Cell (WBC) Count 19.3 10x3/uL (3.5-10.5)
[2023-09-13 05:12] LABS: Anion Gap 16 mmol/L (10-20); BUN (Urea Nitrogen) 22 mg/dL (8.9-20.6); Calc. Creatinine Clearance 184 mL/min (70-130); Calcium 9.5 mg/dL (7.8-10.44); Carbon Dioxide 24 mmol/L (22-29); Chloride 103 mmol/L (98-107); Estimated GFR 115; Glucose 121 mg/dL (70-105); Magnesium 2.2 mg/dL (1.6-2.6); Phosphorus 3.3 mg/dL (2.3-4.7); Potassium 4.2 mmol/L (3.5-5.1); Sodium 139 mmol/L (136-145)
[2023-09-13] MEDS ORDERED: Metoprolol Tartrate 5 MG/5 ML VIAL IVP SCH (06:15)
[2023-09-13] MEDS: Famotidine/PF 20 mg/2ml Vial SLOW IVP SCH ×2 (08:51→22:01)
[2023-09-13] MEDS: Scopolamine 1 mg/72 hour Patch TD SCH (08:51)
[2023-09-13] MEDS ORDERED: Metoprolol Tartrate 5 MG/5 ML VIAL IVP PRN (09:54)
[2023-09-13 10:19] LABS: SARS-CoV-2 NAA Rapid Test Not Detected (NotDetected)
[2023-09-13] MEDS: Acetaminophen 650 MG Suppository PR PRN (12:29)
[2023-09-13] MEDS: Thiamine HCl 200 MG/2 ML VIAL SLOW IVP SCH (21:30)
[2023-09-13] MEDS ORDERED: VANCOMYCIN 2 GRAM/400 ML BAG IVPB SCH (21:45)
[2023-09-13] MEDS ORDERED: Meropenem 1 GM in Sodium Chloride 0.9% 100 ML IVPB SCH (22:00)
[2023-09-13] MEDS ORDERED: VANCOMYCIN 2 GRAM/400 ML BAG 2 GM in Premix 1 BAG IVPB SCH (22:00)
[2023-09-13] MEDS: Cyanocobalamin (Vitamin B-12) 1,000 MCG TAB PER TUBE SCH (22:01)
[2023-09-13] MEDS: Cholecalciferol 1,000 UNITS (25 MCG) TAB PO SCH (22:02)
[2023-09-13] MEDS: Thiamine 100 MG TAB PER TUBE SCH (22:02)
[2023-09-13] MEDS: Metoprolol Tartrate 25 MG TAB PO SCH (22:02)
[2023-09-13] MEDS: Polyethylene Glycol 3350 17 GM Packet PER TUBE SCH (22:02)
[2023-09-13] MEDS: Multivit, Therapeutic 1 TAB PER TUBE SCH (22:03)
[2023-09-14 03:45] LABS: Magnesium 2.2 mg/dL (1.6-2.6); Phosphorus 3.8 mg/dL (2.3-4.7)
[2023-09-14] MEDS: Meropenem 1 GM in Sodium Chloride 0.9% 100 ML IVPB SCH ×3 (05:55→21:32)
[2023-09-14 06:01] LABS: ALV-art Gradient 138.355 mmHg (0-20); Actual Bicarbonate (HCO3a) 27.6 mEq/L (22-28); Analyzer IN Cardio CS ICU; Base Excess (BEa) 4.9 mEq/L (-2.0 to +3.0); CO2 Tension 34.9 mmHg (35.0-45.0); Carboxyhemoglobin (COHb) 0.7 gm% (0.0-3.0); Critical Notified By: Udy, RRT; Hematocrit-ABG 43 % (42.0-52.0); Hemoglobin (Hb) 14.5 g/dL (14.0-18.0); O2 Tension (PaO2), arterial 74.7 mmHg (80.0-100.0); Potassium - ABG Lab 4.32 mmol/L (3.70-5.30); Puncture Site LRA; pH, Arterial 7.516 (7.35-7.45)
[2023-09-14 06:39] LABS: ALT (SGPT) 202 U/L (8-55); AST (SGOT) 122 U/L (5-34); Albumin 3.6 g/dL (3.5-5.0); Alkaline Phosphatase 227 U/L (40-110); Anion Gap 18 mmol/L (10-20); BUN (Urea Nitrogen) 22 mg/dL (8.9-20.6); Bilirubin, Total 1.9 mg/dL (0.2-1.2); Calc. Creatinine Clearance 192 mL/min (70-130); Calcium 9.7 mg/dL (7.8-10.44); Carbon Dioxide 22 mmol/L (22-29); Chloride 105 mmol/L (98-107); Estimated GFR 117; Globulin 4.2 g/dL (2.4-3.5); Glucose 121 mg/dL (70-105); Potassium 4.2 mmol/L (3.5-5.1); Protein, Total 7.8 g/dL (6.0-8.3); Sodium 141 mmol/L (136-145)
[2023-09-14 06:54] LABS: #Basophils 0.1 10x3/uL (0.0-0.2); #Monocytes 1.6 10x3/uL (0.0-1.1); %Basophils 0.5 % (0.0-2.0); %Eosinophils 0.1 % (0.0-6.0); %Lymphocytes 7.5 % (18.0-47.0); %Monocytes 7.6 % (0.0-10.0); %Neutrophils 83.7 % (40.0-75.0); Hematocrit 42.5 % (38.8-50.0); Hemoglobin 13.9 g/dL (13.5-17.5); Mean Corpuscular HGB CONC 32.7 g/dL (32.0-36.0); Mean Corpuscular Hemoglobin 29.3 pg (27.0-33.0); Mean Corpuscular Volume 89.5 fl (81.2-95.1); Mean Platelet Volume 11.7 fl (7.4-10.4); Platelet Count 474 10x3/uL (150-450); RBC Distribution Width 13.7 % (11.5-14.5); Red Blood Cell (RBC) Count 4.75 10x6/uL (4.32-5.72); White Blood Cell (WBC) Count 21.5 10x3/uL (3.5-10.5)
[2023-09-14] MEDS: Metoprolol Tartrate 25 MG TAB PO SCH (08:21)
[2023-09-14] MEDS: Famotidine/PF 20 mg/2ml Vial SLOW IVP SCH ×2 (08:21→21:42)
[2023-09-14] MEDS ORDERED: Vancomycin 1.5 GRAM/300 ML BAG IVPB SCH (09:00)
[2023-09-14] MEDS: Vancomycin 1.5 GRAM/300 ML BAG 1.5 GM in Premix 1 BAG IVPB SCH ×2 (09:06→21:56)
[2023-09-14] MEDS ORDERED: Iopamidol 300 61% 100 ML VIAL FS ONE (10:05)
[2023-09-14] MEDS: Sodium Chloride 3% (15 ML) NEB NEB SCH ×2 (14:00→20:15)
[2023-09-14] MEDS: Acetaminophen 650 MG Suppository PR PRN (17:31)
[2023-09-14] MEDS: HumaLOG 300 UNITS/3 ML VIAL SC PRN (17:33)
[2023-09-14] MEDS: Thiamine HCl 200 MG/2 ML VIAL SLOW IVP SCH (21:42)
[2023-09-14] MEDS: Metoprolol Tartrate 5 MG/5 ML VIAL IVP SCH (21:43)
[2023-09-14] MEDS: D5W-AA 4.25% with LYTES 1,000 ML IV SCH (23:14)
[2023-09-15] MEDS: Sodium Chloride 3% (15 ML) NEB NEB SCH ×4 (01:23→19:52)
[2023-09-15 04:12] LABS: #Basophils 0.1 10x3/uL (0.0-0.2); #Eosinphils 0.2 10x3/uL (0.0-0.5); #Monocytes 1.5 10x3/uL (0.0-1.1); #Neutrophils 12.2 10x3/uL (1.5-8.4); %Basophils 0.6 % (0.0-2.0); %Lymphocytes 10.2 % (18.0-47.0); %Monocytes 9.7 % (0.0-10.0); %Neutrophils 77.9 % (40.0-75.0); Hematocrit 39.9 % (38.8-50.0); Mean Corpuscular HGB CONC 32.6 g/dL (32.0-36.0); Mean Corpuscular Hemoglobin 29.3 pg (27.0-33.0); Mean Corpuscular Volume 89.9 fl (81.2-95.1); Mean Platelet Volume 11.8 fl (7.4-10.4); Platelet Count 432 10x3/uL (150-450); RBC Distribution Width 13.9 % (11.5-14.5); Red Blood Cell (RBC) Count 4.44 10x6/uL (4.32-5.72); White Blood Cell (WBC) Count 15.6 10x3/uL (3.5-10.5)
[2023-09-15 04:21] LABS: ALT (SGPT) 236 U/L (8-55); AST (SGOT) 137 U/L (5-34); Albumin 3.2 g/dL (3.5-5.0); Alkaline Phosphatase 207 U/L (40-110); Anion Gap 16 mmol/L (10-20); BUN (Urea Nitrogen) 22 mg/dL (8.9-20.6); Bilirubin, Total 1.8 mg/dL (0.2-1.2); Calc. Creatinine Clearance 217 mL/min (70-130); Calcium 9.1 mg/dL (7.8-10.44); Carbon Dioxide 22 mmol/L (22-29); Chloride 107 mmol/L (98-107); Estimated GFR 121; Globulin 4.1 g/dL (2.4-3.5); Glucose 116 mg/dL (70-105); Potassium 3.9 mmol/L (3.5-5.1); Protein, Total 7.3 g/dL (6.0-8.3); Sodium 141 mmol/L (136-145)
[2023-09-15] MEDS: Meropenem 1 GM in Sodium Chloride 0.9% 100 ML IVPB SCH ×3 (05:36→21:12)
[2023-09-15] MEDS: Famotidine/PF 20 mg/2ml Vial SLOW IVP SCH ×2 (08:24→20:49)
[2023-09-15] MEDS: Metoprolol Tartrate 5 MG/5 ML VIAL IVP SCH ×2 (08:24→20:51)
[2023-09-15] MEDS: Vancomycin 1.5 GRAM/300 ML BAG 1.5 GM in Premix 1 BAG IVPB SCH ×2 (08:31→18:10)
[2023-09-15 08:54] LABS: Vancomycin, Trough 10.1 ug/mL
[2023-09-15 09:14] LABS: HIV (1/2) Antibody/Antigen Non-Reactive (NonReactive); HIV 1/2 INDEX 0.13 S/CO (<1.00)
[2023-09-15 11:25] LABS: Iron 18 ug/dL (65-175); Iron Binding Capacity, Total 213 mcg/dL (261-462)
[2023-09-15 13:12] LABS: Hep C IgG Ab Non-Reactive S/CO (NonReactive); Hep C Index 0.13 S/CO (0-0.79)
[2023-09-15] MEDS: Thiamine HCl 200 MG/2 ML VIAL SLOW IVP SCH (20:51)
[2023-09-15] MEDS: D5W-AA 4.25% with LYTES 1,000 ML IV SCH (21:26)
[2023-09-16] MEDS: Sodium Chloride 3% (15 ML) NEB NEB SCH ×2 (01:10→06:45)
[2023-09-16] MEDS: Vancomycin 1.5 GRAM/300 ML BAG 1.5 GM in Premix 1 BAG IVPB SCH (01:14)
[2023-09-16 03:47] LABS: ALT (SGPT) 236 U/L (8-55); AST (SGOT) 101 U/L (5-34); Albumin 3.3 g/dL (3.5-5.0); Alkaline Phosphatase 192 U/L (40-110); Anion Gap 17 mmol/L (10-20); BUN (Urea Nitrogen) 24 mg/dL (8.9-20.6); Bilirubin, Total 1.4 mg/dL (0.2-1.2); Calc. Creatinine Clearance 227 mL/min (70-130); Calcium 8.5 mg/dL (7.8-10.44); Carbon Dioxide 22 mmol/L (22-29); Chloride 110 mmol/L (98-107); Estimated GFR 123; Globulin 3.1 g/dL (2.4-3.5); Glucose 113 mg/dL (70-105); Potassium 4.5 mmol/L (3.5-5.1); Protein, Total 6.4 g/dL (6.0-8.3); Sodium 144 mmol/L (136-145)
[2023-09-16 04:00] LABS: #Basophils 0.1 10x3/uL (0.0-0.2); #Eosinphils 0.4 10x3/uL (0.0-0.5); #Neutrophils 7.2 10x3/uL (1.5-8.4); %Eosinophils 3.5 % (0.0-6.0); %Lymphocytes 15.1 % (18.0-47.0); %Monocytes 9.6 % (0.0-10.0); %Neutrophils 70.1 % (40.0-75.0); Hematocrit 37.9 % (38.8-50.0); Hemoglobin 12.2 g/dL (13.5-17.5); Mean Corpuscular HGB CONC 32.2 g/dL (32.0-36.0); Mean Corpuscular Hemoglobin 29.2 pg (27.0-33.0); Mean Corpuscular Volume 90.7 fl (81.2-95.1); Mean Platelet Volume 11.9 fl (7.4-10.4); Platelet Count 488 10x3/uL (150-450); Red Blood Cell (RBC) Count 4.18 10x6/uL (4.32-5.72); White Blood Cell (WBC) Count 10.3 10x3/uL (3.5-10.5)
[2023-09-16 04:12] LABS: Hep B Surface AG-Rflx Sendout Negative (Negative); Hepatitis B Core Total Negative (Negative); Hepatitis B Surface AB-Sendout Reactive (.)
[2023-09-16] MEDS: Meropenem 1 GM in Sodium Chloride 0.9% 100 ML IVPB SCH ×3 (05:19→21:12)
[2023-09-16] MEDS: Metoprolol Tartrate 5 MG/5 ML VIAL IVP SCH ×2 (05:20→21:08)
[2023-09-16] MEDS ORDERED: Bupivacaine PF 0.5% 30 ML VIAL ONE (07:15)
[2023-09-16] MEDS ORDERED: EPINEPHrine 1 MG/ML VIAL ONE (07:15)
[2023-09-16] MEDS ORDERED: fentaNYL 50 mcg/mL 1 mL Vial ONE (07:49)
[2023-09-16] MEDS ORDERED: PROPOFOL 20 ML ONE (07:49)
[2023-09-16] MEDS ORDERED: Rocuronium Bromide 10 MG/ML (10ML VIAL) ONE (07:51)
[2023-09-16] MEDS ORDERED: Dexamethasone 4 mg/ml Vial ONE (07:51)
[2023-09-16] MEDS ORDERED: Ondansetron PF 4 MG/2 ML Vial ONE (07:51)
[2023-09-16] MEDS ORDERED: PHENYLEPHRINE-NS 100 MCG/ML 10 ML SYRINGE ONE (08:21)
[2023-09-16] MEDS ORDERED: VANCOMYCIN 1.25 GM/250 ML BAG 1.25 GM in Premix 1 BAG IVPB SCH (09:00)
[2023-09-16] MEDS: Famotidine/PF 20 mg/2ml Vial SLOW IVP SCH (09:00)
[2023-09-16] MEDS ORDERED: SUGAMMADEX SODIUM 200 MG/2 ML VIAL ONE (09:05)
[2023-09-16] MEDS: Scopolamine 1 mg/72 hour Patch TD SCH (10:42)
[2023-09-16] MEDS: Polyethylene Glycol 3350 17 GM Packet PER TUBE SCH (21:08)
[2023-09-16] MEDS: D5W-AA 4.25% with LYTES 1,000 ML IV SCH (21:23)
[2023-09-17 04:49] LABS: ALT (SGPT) 247 U/L (8-55); AST (SGOT) 127 U/L (5-34); Albumin 3.2 g/dL (3.5-5.0); Alkaline Phosphatase 184 U/L (40-110); Anion Gap 15 mmol/L (10-20); BUN (Urea Nitrogen) 26 mg/dL (8.9-20.6); Bilirubin, Total 1.3 mg/dL (0.2-1.2); Calc. Creatinine Clearance 244 mL/min (70-130); Calcium 8.8 mg/dL (7.8-10.44); Carbon Dioxide 24 mmol/L (22-29); Chloride 106 mmol/L (98-107); Estimated GFR 125; Globulin 3.7 g/dL (2.4-3.5); Glucose 116 mg/dL (70-105); Potassium 3.7 mmol/L (3.5-5.1); Protein, Total 6.9 g/dL (6.0-8.3); Sodium 141 mmol/L (136-145)
[2023-09-17 04:53] LABS: #Basophils 0.1 10x3/uL (0.0-0.2); #Eosinphils 0.2 10x3/uL (0.0-0.5); #Neutrophils 7.3 10x3/uL (1.5-8.4); %Basophils 0.7 % (0.0-2.0); %Eosinophils 2.1 % (0.0-6.0); %Lymphocytes 14.5 % (18.0-47.0); %Monocytes 10.2 % (0.0-10.0); %Neutrophils 71.7 % (40.0-75.0); Hematocrit 36.7 % (38.8-50.0); Hemoglobin 11.9 g/dL (13.5-17.5); Mean Corpuscular HGB CONC 32.4 g/dL (32.0-36.0); Mean Corpuscular Hemoglobin 29.2 pg (27.0-33.0); Mean Platelet Volume 12.1 fl (7.4-10.4); Platelet Count 513 10x3/uL (150-450); RBC Distribution Width 13.8 % (11.5-14.5); Red Blood Cell (RBC) Count 4.08 10x6/uL (4.32-5.72); White Blood Cell (WBC) Count 10.1 10x3/uL (3.5-10.5)
[2023-09-17] MEDS: Meropenem 1 GM in Sodium Chloride 0.9% 100 ML IVPB SCH ×3 (05:21→23:07)
[2023-09-17] MEDS: Lansoprazole 15 MG/5 ML (BATCHED)UDCUP PER TUBE SCH (09:58)
[2023-09-17] MEDS: Polyethylene Glycol 3350 17 GM Packet PER TUBE SCH ×2 (09:58→23:07)
[2023-09-17] MEDS: Metoprolol Tartrate 5 MG/5 ML VIAL IVP SCH ×2 (10:58→23:06)
[2023-09-17] MEDS ORDERED: Acetaminophen 650 MG/20.3 ML UDCUP PER TUBE PRN (16:38)
[2023-09-18 05:44] LABS: #Basophils 0.1 10x3/uL (0.0-0.2); #Eosinphils 0.3 10x3/uL (0.0-0.5); #Monocytes 0.9 10x3/uL (0.0-1.1); #Neutrophils 6.1 10x3/uL (1.5-8.4); %Basophils 1.1 % (0.0-2.0); %Eosinophils 3.4 % (0.0-6.0); %Lymphocytes 19.1 % (18.0-47.0); %Monocytes 9.9 % (0.0-10.0); %Neutrophils 65.7 % (40.0-75.0); Hematocrit 38.1 % (38.8-50.0); Hemoglobin 12.1 g/dL (13.5-17.5); Mean Corpuscular HGB CONC 31.8 g/dL (32.0-36.0); Mean Corpuscular Hemoglobin 28.7 pg (27.0-33.0); Mean Corpuscular Volume 90.5 fl (81.2-95.1); Mean Platelet Volume 11.8 fl (7.4-10.4); Platelet Count 502 10x3/uL (150-450); RBC Distribution Width 14.1 % (11.5-14.5); Red Blood Cell (RBC) Count 4.21 10x6/uL (4.32-5.72); White Blood Cell (WBC) Count 9.3 10x3/uL (3.5-10.5)
[2023-09-18 05:54] LABS: ALT (SGPT) 606 U/L (8-55); AST (SGOT) 313 U/L (5-34); Albumin 3.2 g/dL (3.5-5.0); Alkaline Phosphatase 236 U/L (40-110); Anion Gap 14 mmol/L (10-20); BUN (Urea Nitrogen) 20 mg/dL (8.9-20.6); Calc. Creatinine Clearance 244 mL/min (70-130); Carbon Dioxide 26 mmol/L (22-29); Chloride 108 mmol/L (98-107); Estimated GFR 125; Globulin 3.7 g/dL (2.4-3.5); Glucose 106 mg/dL (70-105); Potassium 4.1 mmol/L (3.5-5.1); Protein, Total 6.9 g/dL (6.0-8.3); Sodium 144 mmol/L (136-145)
[2023-09-18] MEDS: Meropenem 1 GM in Sodium Chloride 0.9% 100 ML IVPB SCH (06:30)
[2023-09-18] MEDS: Lansoprazole 15 MG/5 ML (BATCHED)UDCUP PER TUBE SCH (09:45)
[2023-09-18] MEDS: Polyethylene Glycol 3350 17 GM Packet PER TUBE SCH ×2 (09:45→23:35)
[2023-09-18] MEDS: Metoprolol Tartrate 5 MG/5 ML VIAL IVP SCH ×3 (09:45→23:34)
[2023-09-18] MEDS: Morphine 4 MG/ML VIAL SLOW IVP PRN (18:50)
[2023-09-18 21:03] LABS: #Basophils 0.1 10x3/uL (0.0-0.2); #Eosinphils 0.3 10x3/uL (0.0-0.5); #Monocytes 1.4 10x3/uL (0.0-1.1); #Neutrophils 9.5 10x3/uL (1.5-8.4); %Eosinophils 2.5 % (0.0-6.0); %Lymphocytes 15.3 % (18.0-47.0); %Monocytes 10.5 % (0.0-10.0); %Neutrophils 69.7 % (40.0-75.0); Hematocrit 38.8 % (38.8-50.0); Hemoglobin 12.3 g/dL (13.5-17.5); Mean Corpuscular HGB CONC 31.7 g/dL (32.0-36.0); Mean Corpuscular Hemoglobin 28.6 pg (27.0-33.0); Mean Corpuscular Volume 90.2 fl (81.2-95.1); Mean Platelet Volume 11.7 fl (7.4-10.4); Platelet Count 535 10x3/uL (150-450); RBC Distribution Width 14.2 % (11.5-14.5); White Blood Cell (WBC) Count 13.6 10x3/uL (3.5-10.5)
[2023-09-18] MEDS: Pantoprazole 40 MG VIAL IVP SCH (23:34)
[2023-09-19 03:56] LABS: #Basophils 0.1 10x3/uL (0.0-0.2); #Eosinphils 0.5 10x3/uL (0.0-0.5); #Monocytes 1.3 10x3/uL (0.0-1.1); #Neutrophils 8.2 10x3/uL (1.5-8.4); %Basophils 0.9 % (0.0-2.0); %Eosinophils 3.7 % (0.0-6.0); %Monocytes 10.3 % (0.0-10.0); %Neutrophils 66.8 % (40.0-75.0); Hematocrit 37.7 % (38.8-50.0); Hemoglobin 12.1 g/dL (13.5-17.5); Mean Corpuscular HGB CONC 32.1 g/dL (32.0-36.0); Mean Corpuscular Hemoglobin 28.9 pg (27.0-33.0); Mean Platelet Volume 11.8 fl (7.4-10.4); Platelet Count 534 10x3/uL (150-450); RBC Distribution Width 14.4 % (11.5-14.5); Red Blood Cell (RBC) Count 4.19 10x6/uL (4.32-5.72); White Blood Cell (WBC) Count 12.3 10x3/uL (3.5-10.5)
[2023-09-19 04:09] LABS: ALT (SGPT) 487 U/L (8-55); AST (SGOT) 159 U/L (5-34); Albumin 3.4 g/dL (3.5-5.0); Alkaline Phosphatase 223 U/L (40-110); Anion Gap 15 mmol/L (10-20); BUN (Urea Nitrogen) 19 mg/dL (8.9-20.6); Bilirubin, Total 0.8 mg/dL (0.2-1.2); Calc. Creatinine Clearance 227 mL/min (70-130); Calcium 9.2 mg/dL (7.8-10.44); Carbon Dioxide 25 mmol/L (22-29); Chloride 105 mmol/L (98-107); Estimated GFR 123; Globulin 3.8 g/dL (2.4-3.5); Glucose 123 mg/dL (70-105); Potassium 4.2 mmol/L (3.5-5.1); Protein, Total 7.2 g/dL (6.0-8.3); Sodium 141 mmol/L (136-145)
[2023-09-19] MEDS: Scopolamine 1 mg/72 hour Patch TD SCH (09:44)
[2023-09-19] MEDS: Pantoprazole 40 MG VIAL IVP SCH ×2 (09:44→21:56)
[2023-09-19] MEDS: Metoprolol Tartrate 5 MG/5 ML VIAL IVP SCH ×2 (09:44→21:56)
[2023-09-19] MEDS: Polyethylene Glycol 3350 17 GM Packet PER TUBE SCH ×2 (09:44→21:56)
[2023-09-20 03:31] LABS: #Basophils 0.1 10x3/uL (0.0-0.2); #Eosinphils 0.5 10x3/uL (0.0-0.5); #Monocytes 1.4 10x3/uL (0.0-1.1); #Neutrophils 8.2 10x3/uL (1.5-8.4); %Lymphocytes 16.5 % (18.0-47.0); %Monocytes 10.9 % (0.0-10.0); %Neutrophils 66.2 % (40.0-75.0); Hematocrit 36.9 % (38.8-50.0); Hemoglobin 11.6 g/dL (13.5-17.5); Mean Corpuscular HGB CONC 31.4 g/dL (32.0-36.0); Mean Corpuscular Hemoglobin 28.8 pg (27.0-33.0); Mean Corpuscular Volume 91.6 fl (81.2-95.1); Mean Platelet Volume 12.2 fl (7.4-10.4); Platelet Count 497 10x3/uL (150-450); RBC Distribution Width 14.3 % (11.5-14.5); Red Blood Cell (RBC) Count 4.03 10x6/uL (4.32-5.72); White Blood Cell (WBC) Count 12.4 10x3/uL (3.5-10.5)
[2023-09-20 03:43] LABS: ALT (SGPT) 418 U/L (8-55); AST (SGOT) 144 U/L (5-34); Albumin 3.2 g/dL (3.5-5.0); Alkaline Phosphatase 194 U/L (40-110); Anion Gap 13 mmol/L (10-20); BUN (Urea Nitrogen) 18 mg/dL (8.9-20.6); Bilirubin, Total 0.7 mg/dL (0.2-1.2); Calc. Creatinine Clearance 245 mL/min (70-130); Carbon Dioxide 28 mmol/L (22-29); Chloride 106 mmol/L (98-107); Estimated GFR 126; Globulin 3.5 g/dL (2.4-3.5); Glucose 112 mg/dL (70-105); Potassium 4.1 mmol/L (3.5-5.1); Protein, Total 6.7 g/dL (6.0-8.3); Sodium 143 mmol/L (136-145)
[2023-09-20] MEDS: Metoprolol Tartrate 5 MG/5 ML VIAL IVP SCH ×2 (09:07→20:47)
[2023-09-20] MEDS: Polyethylene Glycol 3350 17 GM Packet PER TUBE SCH ×2 (09:07→20:54)
[2023-09-20] MEDS: Pantoprazole 40 MG VIAL IVP SCH ×2 (09:07→20:46)
[2023-09-20] MEDS: Morphine 4 MG/ML VIAL SLOW IVP PRN ×2 (11:10→20:51)
[2023-09-20] MEDS: HumaLOG 300 UNITS/3 ML VIAL SC PRN (20:54)
[2023-09-21 04:54] LABS: #Basophils 0.1 10x3/uL (0.0-0.2); #Eosinphils 0.4 10x3/uL (0.0-0.5); #Monocytes 1.3 10x3/uL (0.0-1.1); #Neutrophils 8.7 10x3/uL (1.5-8.4); %Basophils 0.7 % (0.0-2.0); %Eosinophils 3.2 % (0.0-6.0); %Lymphocytes 15.7 % (18.0-47.0); Hematocrit 37.6 % (38.8-50.0); Hemoglobin 11.6 g/dL (13.5-17.5); Mean Corpuscular HGB CONC 30.9 g/dL (32.0-36.0); Mean Corpuscular Hemoglobin 28.6 pg (27.0-33.0); Mean Corpuscular Volume 92.6 fl (81.2-95.1); Mean Platelet Volume 12.3 fl (7.4-10.4); Platelet Count 490 10x3/uL (150-450); RBC Distribution Width 14.3 % (11.5-14.5); Red Blood Cell (RBC) Count 4.06 10x6/uL (4.32-5.72); White Blood Cell (WBC) Count 12.7 10x3/uL (3.5-10.5)
[2023-09-21 05:28] LABS: ALT (SGPT) 357 U/L (8-55); AST (SGOT) 122 U/L (5-34); Albumin 3.3 g/dL (3.5-5.0); Alkaline Phosphatase 168 U/L (40-110); Anion Gap 16 mmol/L (10-20); BUN (Urea Nitrogen) 18 mg/dL (8.9-20.6); Bilirubin, Total 0.6 mg/dL (0.2-1.2); Calc. Creatinine Clearance 227 mL/min (70-130); Calcium 9.2 mg/dL (7.8-10.44); Carbon Dioxide 28 mmol/L (22-29); Chloride 106 mmol/L (98-107); Estimated GFR 123; Globulin 3.6 g/dL (2.4-3.5); Glucose 112 mg/dL (70-105); Potassium 4.3 mmol/L (3.5-5.1); Protein, Total 6.9 g/dL (6.0-8.3); Sodium 146 mmol/L (136-145)
[2023-09-21] MEDS: Metoprolol Tartrate 5 MG/5 ML VIAL IVP SCH ×2 (10:17→21:51)
[2023-09-21] MEDS: Pantoprazole 40 MG VIAL IVP SCH ×2 (10:17→21:51)
[2023-09-21] MEDS: Polyethylene Glycol 3350 17 GM Packet PER TUBE SCH ×2 (10:18→21:51)
[2023-09-21] MEDS: Morphine 4 MG/ML VIAL SLOW IVP PRN ×2 (10:20→14:59)
[2023-09-21] MEDS ORDERED: Acetaminophen 650 MG/20.3 ML UDCUP PO SCH (16:30)
[2023-09-22 05:24] LABS: #Basophils 0.1 10x3/uL (0.0-0.2); #Eosinphils 0.2 10x3/uL (0.0-0.5); #Monocytes 1.3 10x3/uL (0.0-1.1); #Neutrophils 10.6 10x3/uL (1.5-8.4); %Basophils 0.7 % (0.0-2.0); %Eosinophils 1.7 % (0.0-6.0); %Monocytes 8.9 % (0.0-10.0); %Neutrophils 75.7 % (40.0-75.0); Hematocrit 41.8 % (38.8-50.0); Hemoglobin 12.8 g/dL (13.5-17.5); Mean Corpuscular HGB CONC 30.6 g/dL (32.0-36.0); Mean Corpuscular Hemoglobin 28.3 pg (27.0-33.0); Mean Corpuscular Volume 92.3 fl (81.2-95.1); Mean Platelet Volume 12.3 fl (7.4-10.4); Platelet Count 522 10x3/uL (150-450); RBC Distribution Width 14.3 % (11.5-14.5); Red Blood Cell (RBC) Count 4.53 10x6/uL (4.32-5.72)
[2023-09-22 05:43] LABS: ALT (SGPT) 326 U/L (8-55); AST (SGOT) 102 U/L (5-34); Albumin 3.5 g/dL (3.5-5.0); Alkaline Phosphatase 187 U/L (40-110); Anion Gap 17 mmol/L (10-20); BUN (Urea Nitrogen) 18 mg/dL (8.9-20.6); Bilirubin, Total 0.7 mg/dL (0.2-1.2); Calc. Creatinine Clearance 221 mL/min (70-130); Calcium 9.7 mg/dL (7.8-10.44); Carbon Dioxide 29 mmol/L (22-29); Chloride 105 mmol/L (98-107); Estimated GFR 123; Glucose 126 mg/dL (70-105); Potassium 4.6 mmol/L (3.5-5.1); Protein, Total 7.5 g/dL (6.0-8.3); Sodium 146 mmol/L (136-145)
[2023-09-22] MEDS: Morphine 4 MG/ML VIAL SLOW IVP PRN ×2 (06:18→10:20)
[2023-09-22] MEDS: Polyethylene Glycol 3350 17 GM Packet PER TUBE SCH ×3 (09:15→21:41)
[2023-09-22] MEDS: Pantoprazole 40 MG VIAL IVP SCH ×2 (09:24→21:41)
[2023-09-22] MEDS: Metoprolol Tartrate 5 MG/5 ML VIAL IVP SCH ×2 (09:25→21:41)
[2023-09-22] MEDS: Scopolamine 1 mg/72 hour Patch TD SCH (09:25)
[2023-09-22] MEDS: Ibuprofen 100 MG/5 ML UDCUP PO PRN (17:43)
[2023-09-23 04:19] LABS: #Basophils 0.1 10x3/uL (0.0-0.2); #Eosinphils 0.2 10x3/uL (0.0-0.5); #Monocytes 1.3 10x3/uL (0.0-1.1); #Neutrophils 10.1 10x3/uL (1.5-8.4); %Basophils 0.7 % (0.0-2.0); %Eosinophils 1.5 % (0.0-6.0); %Lymphocytes 13.8 % (18.0-47.0); %Monocytes 9.2 % (0.0-10.0); %Neutrophils 73.9 % (40.0-75.0); Hematocrit 41.8 % (38.8-50.0); Hemoglobin 12.9 g/dL (13.5-17.5); Mean Corpuscular HGB CONC 30.9 g/dL (32.0-36.0); Mean Corpuscular Hemoglobin 28.4 pg (27.0-33.0); Mean Corpuscular Volume 91.9 fl (81.2-95.1); Mean Platelet Volume 11.8 fl (7.4-10.4); Platelet Count 443 10x3/uL (150-450); RBC Distribution Width 14.2 % (11.5-14.5); Red Blood Cell (RBC) Count 4.55 10x6/uL (4.32-5.72); White Blood Cell (WBC) Count 13.7 10x3/uL (3.5-10.5)
[2023-09-23 04:28] LABS: ALT (SGPT) 310 U/L (8-55); AST (SGOT) 104 U/L (5-34); Albumin 3.4 g/dL (3.5-5.0); Alkaline Phosphatase 153 U/L (40-110); Anion Gap 16 mmol/L (10-20); BUN (Urea Nitrogen) 17 mg/dL (8.9-20.6); Bilirubin, Total 0.6 mg/dL (0.2-1.2); Calc. Creatinine Clearance 217 mL/min (70-130); Calcium 9.5 mg/dL (7.8-10.44); Carbon Dioxide 29 mmol/L (22-29); Chloride 104 mmol/L (98-107); Estimated GFR 122; Globulin 3.7 g/dL (2.4-3.5); Glucose 120 mg/dL (70-105); Potassium 4.8 mmol/L (3.5-5.1); Protein, Total 7.1 g/dL (6.0-8.3); Sodium 144 mmol/L (136-145)
[2023-09-23] MEDS: Polyethylene Glycol 3350 17 GM Packet PER TUBE SCH ×2 (09:14→20:57)
[2023-09-23] MEDS: Pantoprazole 40 MG VIAL IVP SCH ×2 (09:14→20:57)
[2023-09-23] MEDS: Metoprolol Tartrate 5 MG/5 ML VIAL IVP SCH ×3 (09:15→21:01)
[2023-09-23] MEDS: HumaLOG 300 UNITS/3 ML VIAL SC PRN (17:49)
[2023-09-23] MEDS: Ibuprofen 100 MG/5 ML UDCUP PO PRN (18:09)
[2023-09-24 05:49] LABS: #Basophils 0.1 10x3/uL (0.0-0.2); #Eosinphils 0.2 10x3/uL (0.0-0.5); #Neutrophils 7.8 10x3/uL (1.5-8.4); %Basophils 0.7 % (0.0-2.0); %Lymphocytes 16.6 % (18.0-47.0); %Monocytes 8.8 % (0.0-10.0); %Neutrophils 71.2 % (40.0-75.0); Hematocrit 38.4 % (38.8-50.0); Hemoglobin 11.9 g/dL (13.5-17.5); Mean Corpuscular Hemoglobin 28.3 pg (27.0-33.0); Mean Corpuscular Volume 91.2 fl (81.2-95.1); Mean Platelet Volume 12.2 fl (7.4-10.4); Platelet Count 448 10x3/uL (150-450); RBC Distribution Width 14.2 % (11.5-14.5); Red Blood Cell (RBC) Count 4.21 10x6/uL (4.32-5.72)
[2023-09-24 05:55] LABS: ALT (SGPT) 286 U/L (8-55); AST (SGOT) 113 U/L (5-34); Albumin 3.1 g/dL (3.5-5.0); Alkaline Phosphatase 130 U/L (40-110); Anion Gap 16 mmol/L (10-20); BUN (Urea Nitrogen) 18 mg/dL (8.9-20.6); Bilirubin, Total 0.5 mg/dL (0.2-1.2); Calc. Creatinine Clearance 242 mL/min (70-130); Calcium 9.3 mg/dL (7.8-10.44); Carbon Dioxide 27 mmol/L (22-29); Chloride 106 mmol/L (98-107); Estimated GFR 126; Globulin 3.5 g/dL (2.4-3.5); Glucose 111 mg/dL (70-105); Potassium 4.5 mmol/L (3.5-5.1); Protein, Total 6.6 g/dL (6.0-8.3); Sodium 144 mmol/L (136-145)
[2023-09-24] MEDS: Pantoprazole 40 MG VIAL IVP SCH ×2 (09:41→21:45)
[2023-09-24] MEDS: Metoprolol Tartrate 5 MG/5 ML VIAL IVP SCH ×3 (09:42→21:45)
[2023-09-24] MEDS: Polyethylene Glycol 3350 17 GM Packet PER TUBE SCH ×2 (09:42→21:45)
[2023-09-24] MEDS: Morphine 4 MG/ML VIAL SLOW IVP PRN (18:35)
[2023-09-25 05:26] LABS: #Basophils 0.1 10x3/uL (0.0-0.2); #Eosinphils 0.1 10x3/uL (0.0-0.5); #Monocytes 1.2 10x3/uL (0.0-1.1); #Neutrophils 9.2 10x3/uL (1.5-8.4); %Basophils 0.5 % (0.0-2.0); %Monocytes 9.2 % (0.0-10.0); %Neutrophils 72.7 % (40.0-75.0); Hematocrit 37.3 % (38.8-50.0); Hemoglobin 11.9 g/dL (13.5-17.5); Mean Corpuscular HGB CONC 31.9 g/dL (32.0-36.0); Mean Corpuscular Volume 90.8 fl (81.2-95.1); Mean Platelet Volume 12.5 fl (7.4-10.4); Platelet Count 455 10x3/uL (150-450); RBC Distribution Width 14.3 % (11.5-14.5); Red Blood Cell (RBC) Count 4.11 10x6/uL (4.32-5.72); White Blood Cell (WBC) Count 12.6 10x3/uL (3.5-10.5)
[2023-09-25] MEDS: Metoprolol Tartrate 5 MG/5 ML VIAL IVP SCH ×2 (09:08→21:36)
[2023-09-25] MEDS: Pantoprazole 40 MG VIAL IVP SCH ×2 (09:08→21:36)
[2023-09-25] MEDS: Scopolamine 1 mg/72 hour Patch TD SCH (09:08)
[2023-09-25] MEDS: Polyethylene Glycol 3350 17 GM Packet PER TUBE SCH ×2 (09:09→22:17)
[2023-09-25] MEDS: Ibuprofen 100 MG/5 ML UDCUP PO PRN (13:16)
[2023-09-26 04:45] LABS: #Basophils 0.1 10x3/uL (0.0-0.2); #Eosinphils 0.2 10x3/uL (0.0-0.5); #Monocytes 0.7 10x3/uL (0.0-1.1); #Neutrophils 7.7 10x3/uL (1.5-8.4); %Basophils 0.8 % (0.0-2.0); %Eosinophils 1.6 % (0.0-6.0); %Lymphocytes 17.3 % (18.0-47.0); %Monocytes 6.5 % (0.0-10.0); %Neutrophils 73.1 % (40.0-75.0); Hematocrit 37.4 % (38.8-50.0); Hemoglobin 11.8 g/dL (13.5-17.5); Mean Corpuscular HGB CONC 31.6 g/dL (32.0-36.0); Mean Corpuscular Hemoglobin 28.6 pg (27.0-33.0); Mean Corpuscular Volume 90.6 fl (81.2-95.1); Mean Platelet Volume 12.6 fl (7.4-10.4); Platelet Count 433 10x3/uL (150-450); RBC Distribution Width 14.2 % (11.5-14.5); Red Blood Cell (RBC) Count 4.13 10x6/uL (4.32-5.72); White Blood Cell (WBC) Count 10.6 10x3/uL (3.5-10.5)
[2023-09-26 04:50] LABS: Anion Gap 16 mmol/L (10-20); BUN (Urea Nitrogen) 17 mg/dL (8.9-20.6); Calc. Creatinine Clearance 232 mL/min (70-130); Calcium 9.5 mg/dL (7.8-10.44); Carbon Dioxide 26 mmol/L (22-29); Chloride 107 mmol/L (98-107); Estimated GFR 124; Glucose 112 mg/dL (70-105); Potassium 4.3 mmol/L (3.5-5.1); Sodium 145 mmol/L (136-145)
[2023-09-26] MEDS: Pantoprazole 40 MG VIAL IVP SCH ×2 (09:20→22:57)
[2023-09-26] MEDS: Metoprolol Tartrate 5 MG/5 ML VIAL IVP SCH ×2 (09:20→22:56)
[2023-09-26] MEDS: Polyethylene Glycol 3350 17 GM Packet PER TUBE SCH ×2 (09:20→22:58)
[2023-09-27 05:05] LABS: #Basophils 0.1 10x3/uL (0.0-0.2); #Eosinphils 0.2 10x3/uL (0.0-0.5); #Monocytes 0.8 10x3/uL (0.0-1.1); #Neutrophils 9.2 10x3/uL (1.5-8.4); %Basophils 0.7 % (0.0-2.0); %Eosinophils 1.5 % (0.0-6.0); %Lymphocytes 14.4 % (18.0-47.0); %Monocytes 6.6 % (0.0-10.0); %Neutrophils 76.4 % (40.0-75.0); Hematocrit 38.5 % (38.8-50.0); Hemoglobin 12.1 g/dL (13.5-17.5); Mean Corpuscular HGB CONC 31.4 g/dL (32.0-36.0); Mean Corpuscular Hemoglobin 28.7 pg (27.0-33.0); Mean Corpuscular Volume 91.4 fl (81.2-95.1); Mean Platelet Volume 12.8 fl (7.4-10.4); Platelet Count 431 10x3/uL (150-450); RBC Distribution Width 14.2 % (11.5-14.5); Red Blood Cell (RBC) Count 4.21 10x6/uL (4.32-5.72); White Blood Cell (WBC) Count 12.1 10x3/uL (3.5-10.5)
[2023-09-27 05:19] LABS: Anion Gap 15 mmol/L (10-20); BUN (Urea Nitrogen) 18 mg/dL (8.9-20.6); Calc. Creatinine Clearance 229 mL/min (70-130); Calcium 9.5 mg/dL (7.8-10.44); Carbon Dioxide 28 mmol/L (22-29); Chloride 107 mmol/L (98-107); Estimated GFR 125; Glucose 112 mg/dL (70-105); Potassium 4.3 mmol/L (3.5-5.1); Sodium 146 mmol/L (136-145)
[2023-09-27] MEDS: Pantoprazole 40 MG VIAL IVP SCH ×2 (09:32→21:14)
[2023-09-27] MEDS: Polyethylene Glycol 3350 17 GM Packet PER TUBE SCH ×2 (09:33→21:19)
[2023-09-27] MEDS: Metoprolol Tartrate 5 MG/5 ML VIAL IVP SCH ×2 (09:33→21:09)
[2023-09-27] MEDS: Ibuprofen 100 MG/5 ML UDCUP PO PRN (18:32)
[2023-09-27] MEDS: Morphine 4 MG/ML VIAL SLOW IVP PRN (21:02)
[2023-09-28 05:21] LABS: #Basophils 0.1 10x3/uL (0.0-0.2); #Eosinphils 0.2 10x3/uL (0.0-0.5); #Monocytes 0.7 10x3/uL (0.0-1.1); #Neutrophils 6.9 10x3/uL (1.5-8.4); %Basophils 0.7 % (0.0-2.0); %Eosinophils 2.3 % (0.0-6.0); %Lymphocytes 18.2 % (18.0-47.0); %Monocytes 7.3 % (0.0-10.0); %Neutrophils 70.8 % (40.0-75.0); Hematocrit 39.3 % (38.8-50.0); Mean Corpuscular HGB CONC 30.5 g/dL (32.0-36.0); Mean Corpuscular Volume 91.6 fl (81.2-95.1); Mean Platelet Volume 12.4 fl (7.4-10.4); Platelet Count 403 10x3/uL (150-450); RBC Distribution Width 14.4 % (11.5-14.5); Red Blood Cell (RBC) Count 4.29 10x6/uL (4.32-5.72); White Blood Cell (WBC) Count 9.7 10x3/uL (3.5-10.5)
[2023-09-28 05:27] LABS: Anion Gap 16 mmol/L (10-20); BUN (Urea Nitrogen) 19 mg/dL (8.9-20.6); Calc. Creatinine Clearance 223 mL/min (70-130); Calcium 9.6 mg/dL (7.8-10.44); Carbon Dioxide 28 mmol/L (22-29); Chloride 108 mmol/L (98-107); Estimated GFR 124; Glucose 108 mg/dL (70-105); Potassium 4.1 mmol/L (3.5-5.1); Sodium 148 mmol/L (136-145)
[2023-09-28] MEDS: Pantoprazole 40 MG VIAL IVP SCH (09:58)
[2023-09-28] MEDS: Scopolamine 1 mg/72 hour Patch TD SCH (10:14)
[2023-09-28] MEDS: Metoprolol Tartrate 5 MG/5 ML VIAL IVP SCH (10:14)
[2023-09-28] MEDS: Polyethylene Glycol 3350 17 GM Packet PER TUBE SCH ×2 (10:14→20:16)
[2023-09-28] MEDS: Morphine 4 MG/ML VIAL SLOW IVP PRN ×2 (13:02→19:54)
[2023-09-28] MEDS: Metoprolol Tartrate 25 MG TAB PER TUBE SCH (20:04)
[2023-09-29 04:04] LABS: #Basophils 0.1 10x3/uL (0.0-0.2); #Eosinphils 0.2 10x3/uL (0.0-0.5); #Monocytes 0.8 10x3/uL (0.0-1.1); #Neutrophils 6.4 10x3/uL (1.5-8.4); %Basophils 0.9 % (0.0-2.0); %Eosinophils 2.3 % (0.0-6.0); %Monocytes 8.5 % (0.0-10.0); %Neutrophils 70.7 % (40.0-75.0); Hematocrit 38.8 % (38.8-50.0); Hemoglobin 12.3 g/dL (13.5-17.5); Mean Corpuscular HGB CONC 31.7 g/dL (32.0-36.0); Mean Corpuscular Hemoglobin 29.3 pg (27.0-33.0); Mean Corpuscular Volume 92.4 fl (81.2-95.1); Mean Platelet Volume 12.5 fl (7.4-10.4); Platelet Count 399 10x3/uL (150-450); RBC Distribution Width 14.3 % (11.5-14.5); White Blood Cell (WBC) Count 9.1 10x3/uL (3.5-10.5)
[2023-09-29] MEDS: Metoprolol Tartrate 25 MG TAB PER TUBE SCH ×2 (09:21→20:02)
[2023-09-29] MEDS: Polyethylene Glycol 3350 17 GM Packet PER TUBE SCH ×2 (09:22→20:28)
[2023-09-29] MEDS: Lansoprazole 3 MG/ML ORAL SUSPENSION PER TUBE SCH (09:26)
[2023-09-29] MEDS: Ibuprofen 100 MG/5 ML UDCUP PO PRN (09:38)
[2023-09-29 12:50] LABS: Anion Gap 15 mmol/L (10-20); BUN (Urea Nitrogen) 18 mg/dL (8.9-20.6); Calc. Creatinine Clearance 242 mL/min (70-130); Calcium 9.1 mg/dL (7.8-10.44); Carbon Dioxide 28 mmol/L (22-29); Chloride 105 mmol/L (98-107); Estimated GFR 126; Glucose 80 mg/dL (70-105); Potassium 4.3 mmol/L (3.5-5.1); Sodium 144 mmol/L (136-145)
[2023-09-29] MEDS: Morphine 4 MG/ML VIAL SLOW IVP PRN ×2 (13:34→19:54)
[2023-09-30 04:48] LABS: #Basophils 0.1 10x3/uL (0.0-0.2); #Eosinphils 0.2 10x3/uL (0.0-0.5); #Monocytes 0.8 10x3/uL (0.0-1.1); #Neutrophils 5.6 10x3/uL (1.5-8.4); %Basophils 0.9 % (0.0-2.0); %Eosinophils 2.8 % (0.0-6.0); %Lymphocytes 22.4 % (18.0-47.0); %Monocytes 8.8 % (0.0-10.0); %Neutrophils 64.5 % (40.0-75.0); Hemoglobin 11.8 g/dL (13.5-17.5); Mean Corpuscular HGB CONC 31.9 g/dL (32.0-36.0); Mean Corpuscular Hemoglobin 29.2 pg (27.0-33.0); Mean Corpuscular Volume 91.6 fl (81.2-95.1); Mean Platelet Volume 12.8 fl (7.4-10.4); Platelet Count 378 10x3/uL (150-450); RBC Distribution Width 14.1 % (11.5-14.5); Red Blood Cell (RBC) Count 4.04 10x6/uL (4.32-5.72); White Blood Cell (WBC) Count 8.7 10x3/uL (3.5-10.5)
[2023-09-30] MEDS: Polyethylene Glycol 3350 17 GM Packet PER TUBE SCH ×2 (10:00→21:39)
[2023-09-30] MEDS: Metoprolol Tartrate 25 MG TAB PER TUBE SCH ×2 (10:00→21:38)
[2023-09-30] MEDS: Lansoprazole 3 MG/ML ORAL SUSPENSION PER TUBE SCH (11:00)
[2023-09-30] MEDS: Morphine 4 MG/ML VIAL SLOW IVP PRN ×2 (18:45→23:50)
[2023-10-01 05:23] LABS: #Basophils 0.1 10x3/uL (0.0-0.2); #Eosinphils 0.2 10x3/uL (0.0-0.5); #Monocytes 0.7 10x3/uL (0.0-1.1); #Neutrophils 4.8 10x3/uL (1.5-8.4); %Basophils 1.4 % (0.0-2.0); %Eosinophils 2.8 % (0.0-6.0); %Monocytes 8.8 % (0.0-10.0); %Neutrophils 61.4 % (40.0-75.0); Hematocrit 38.7 % (38.8-50.0); Hemoglobin 11.8 g/dL (13.5-17.5); Mean Corpuscular HGB CONC 30.5 g/dL (32.0-36.0); Mean Corpuscular Hemoglobin 28.6 pg (27.0-33.0); Mean Corpuscular Volume 93.9 fl (81.2-95.1); Mean Platelet Volume 12.3 fl (7.4-10.4); Platelet Count 329 10x3/uL (150-450); RBC Distribution Width 14.3 % (11.5-14.5); Red Blood Cell (RBC) Count 4.12 10x6/uL (4.32-5.72); White Blood Cell (WBC) Count 7.8 10x3/uL (3.5-10.5)
[2023-10-01] MEDS: Lansoprazole 3 MG/ML ORAL SUSPENSION PER TUBE SCH (09:56)
[2023-10-01] MEDS: Polyethylene Glycol 3350 17 GM Packet PER TUBE SCH ×2 (10:38→22:02)
[2023-10-01] MEDS: Metoprolol Tartrate 25 MG TAB PER TUBE SCH ×2 (10:38→22:02)
[2023-10-01] MEDS: Scopolamine 1 mg/72 hour Patch TD SCH (10:39)
[2023-10-01] MEDS: Morphine 4 MG/ML VIAL SLOW IVP PRN (10:40)
[2023-10-02 05:12] LABS: #Basophils 0.1 10x3/uL (0.0-0.2); #Eosinphils 0.2 10x3/uL (0.0-0.5); #Monocytes 0.8 10x3/uL (0.0-1.1); #Neutrophils 5.6 10x3/uL (1.5-8.4); %Basophils 0.8 % (0.0-2.0); %Eosinophils 2.4 % (0.0-6.0); %Lymphocytes 17.3 % (18.0-47.0); %Monocytes 9.6 % (0.0-10.0); %Neutrophils 69.4 % (40.0-75.0); Hematocrit 39.4 % (38.8-50.0); Hemoglobin 12.8 g/dL (13.5-17.5); Mean Corpuscular HGB CONC 32.5 g/dL (32.0-36.0); Mean Corpuscular Hemoglobin 29.2 pg (27.0-33.0); Mean Platelet Volume 12.4 fl (7.4-10.4); Platelet Count 361 10x3/uL (150-450); RBC Distribution Width 14.2 % (11.5-14.5); Red Blood Cell (RBC) Count 4.38 10x6/uL (4.32-5.72)
[2023-10-02] MEDS: Polyethylene Glycol 3350 17 GM Packet PER TUBE SCH ×2 (09:48→20:30)
[2023-10-02] MEDS: Metoprolol Tartrate 25 MG TAB PER TUBE SCH ×2 (09:48→20:30)
[2023-10-02] MEDS: Lansoprazole 3 MG/ML ORAL SUSPENSION PER TUBE SCH (10:57)
[2023-10-02] MEDS: Morphine 4 MG/ML VIAL SLOW IVP PRN ×2 (14:13→20:21)
[2023-10-03] MEDS: Morphine 4 MG/ML VIAL SLOW IVP PRN ×4 (01:17→19:39)
[2023-10-03 04:24] LABS: #Basophils 0.1 10x3/uL (0.0-0.2); #Eosinphils 0.2 10x3/uL (0.0-0.5); #Monocytes 1.1 10x3/uL (0.0-1.1); #Neutrophils 7.4 10x3/uL (1.5-8.4); %Basophils 0.7 % (0.0-2.0); %Eosinophils 1.5 % (0.0-6.0); %Lymphocytes 17.3 % (18.0-47.0); %Monocytes 10.4 % (0.0-10.0); %Neutrophils 69.3 % (40.0-75.0); Hematocrit 39.6 % (38.8-50.0); Hemoglobin 12.5 g/dL (13.5-17.5); Mean Corpuscular HGB CONC 31.6 g/dL (32.0-36.0); Mean Corpuscular Hemoglobin 28.4 pg (27.0-33.0); Mean Platelet Volume 12.5 fl (7.4-10.4); Platelet Count 328 10x3/uL (150-450); RBC Distribution Width 14.5 % (11.5-14.5); White Blood Cell (WBC) Count 10.6 10x3/uL (3.5-10.5)
[2023-10-03] MEDS: Lansoprazole 3 MG/ML ORAL SUSPENSION PER TUBE SCH (09:56)
[2023-10-03] MEDS: Metoprolol Tartrate 25 MG TAB PER TUBE SCH ×2 (09:57→20:55)
[2023-10-03] MEDS: Polyethylene Glycol 3350 17 GM Packet PER TUBE SCH ×2 (09:57→20:55)
[2023-10-03] MEDS: Ibuprofen 100 MG/5 ML UDCUP PO PRN (12:33)
[2023-10-04] MEDS: Morphine 4 MG/ML VIAL SLOW IVP PRN ×5 (00:24→17:36)
[2023-10-04 03:58] LABS: #Basophils 0.1 10x3/uL (0.0-0.2); #Eosinphils 0.2 10x3/uL (0.0-0.5); #Monocytes 1.2 10x3/uL (0.0-1.1); %Basophils 0.7 % (0.0-2.0); %Eosinophils 1.5 % (0.0-6.0); %Lymphocytes 19.7 % (18.0-47.0); %Monocytes 11.2 % (0.0-10.0); %Neutrophils 66.3 % (40.0-75.0); Hematocrit 39.7 % (38.8-50.0); Hemoglobin 12.7 g/dL (13.5-17.5); Mean Corpuscular Hemoglobin 28.8 pg (27.0-33.0); Mean Platelet Volume 12.3 fl (7.4-10.4); Platelet Count 323 10x3/uL (150-450); RBC Distribution Width 14.6 % (11.5-14.5); Red Blood Cell (RBC) Count 4.41 10x6/uL (4.32-5.72); White Blood Cell (WBC) Count 10.6 10x3/uL (3.5-10.5)
[2023-10-04] MEDS: Scopolamine 1 mg/72 hour Patch TD SCH (09:37)
[2023-10-04] MEDS: Polyethylene Glycol 3350 17 GM Packet PER TUBE SCH ×2 (09:37→20:34)
[2023-10-04] MEDS: Metoprolol Tartrate 25 MG TAB PER TUBE SCH ×2 (09:37→20:34)
[2023-10-04] MEDS: Lansoprazole 3 MG/ML ORAL SUSPENSION PER TUBE SCH (09:43)
[2023-10-04 10:05] LABS: Anion Gap 16 mmol/L (10-20); BUN (Urea Nitrogen) 13 mg/dL (8.9-20.6); Calc. Creatinine Clearance 233 mL/min (70-130); Carbon Dioxide 27 mmol/L (22-29); Chloride 99 mmol/L (98-107); Estimated GFR 125; Glucose 107 mg/dL (70-105); Potassium 4.4 mmol/L (3.5-5.1); Sodium 138 mmol/L (136-145)
[2023-10-04] MEDS: Ibuprofen 100 MG/5 ML UDCUP PO PRN (20:35)
[2023-10-05 03:37] LABS: #Basophils 0.1 10x3/uL (0.0-0.2); #Eosinphils 0.2 10x3/uL (0.0-0.5); #Monocytes 1.4 10x3/uL (0.0-1.1); #Neutrophils 5.9 10x3/uL (1.5-8.4); %Basophils 0.6 % (0.0-2.0); %Eosinophils 1.5 % (0.0-6.0); %Lymphocytes 22.2 % (18.0-47.0); %Monocytes 13.9 % (0.0-10.0); %Neutrophils 60.9 % (40.0-75.0); Hematocrit 39.4 % (38.8-50.0); Hemoglobin 12.6 g/dL (13.5-17.5); Mean Corpuscular Hemoglobin 28.9 pg (27.0-33.0); Mean Corpuscular Volume 90.4 fl (81.2-95.1); Mean Platelet Volume 12.8 fl (7.4-10.4); Platelet Count 308 10x3/uL (150-450); RBC Distribution Width 14.3 % (11.5-14.5); Red Blood Cell (RBC) Count 4.36 10x6/uL (4.32-5.72); White Blood Cell (WBC) Count 9.8 10x3/uL (3.5-10.5)
[2023-10-05] MEDS: Morphine 4 MG/ML VIAL SLOW IVP PRN ×3 (04:20→18:39)
[2023-10-05] MEDS: Ibuprofen 100 MG/5 ML UDCUP PO PRN (06:33)
[2023-10-05] MEDS: Lansoprazole 3 MG/ML ORAL SUSPENSION PER TUBE SCH (10:44)
[2023-10-05] MEDS: Polyethylene Glycol 3350 17 GM Packet PER TUBE SCH ×2 (10:45→22:08)
[2023-10-05] MEDS: Metoprolol Tartrate 25 MG TAB PER TUBE SCH ×2 (10:45→22:08)
[2023-10-06 05:00] LABS: #Basophils 0.1 10x3/uL (0.0-0.2); #Eosinphils 0.2 10x3/uL (0.0-0.5); #Monocytes 1.3 10x3/uL (0.0-1.1); #Neutrophils 7.3 10x3/uL (1.5-8.4); %Basophils 0.7 % (0.0-2.0); %Eosinophils 1.4 % (0.0-6.0); %Lymphocytes 16.2 % (18.0-47.0); %Monocytes 12.6 % (0.0-10.0); %Neutrophils 68.7 % (40.0-75.0); Hematocrit 40.2 % (38.8-50.0); Hemoglobin 12.9 g/dL (13.5-17.5); Mean Corpuscular HGB CONC 32.1 g/dL (32.0-36.0); Mean Corpuscular Hemoglobin 28.9 pg (27.0-33.0); Mean Corpuscular Volume 90.1 fl (81.2-95.1); Mean Platelet Volume 12.8 fl (7.4-10.4); Platelet Count 290 10x3/uL (150-450); RBC Distribution Width 14.1 % (11.5-14.5); Red Blood Cell (RBC) Count 4.46 10x6/uL (4.32-5.72); White Blood Cell (WBC) Count 10.7 10x3/uL (3.5-10.5)
[2023-10-06] MEDS: Ibuprofen 100 MG/5 ML UDCUP PO PRN ×2 (06:06→15:19)
[2023-10-06] MEDS: Polyethylene Glycol 3350 17 GM Packet PER TUBE SCH (08:57)
[2023-10-06] MEDS: Morphine 4 MG/ML VIAL SLOW IVP PRN ×3 (10:22→20:33)
[2023-10-06] MEDS: Metoprolol Tartrate 25 MG TAB PER TUBE SCH (10:22)
[2023-10-06] MEDS: Lansoprazole 3 MG/ML ORAL SUSPENSION PER TUBE SCH (10:23)
[2023-10-07] MEDS: Metoprolol Tartrate 25 MG TAB PER TUBE SCH ×3 (03:37→20:41)
[2023-10-07] MEDS: Polyethylene Glycol 3350 17 GM Packet PER TUBE SCH ×3 (03:38→23:06)
[2023-10-07 04:32] LABS: #Basophils 0.1 10x3/uL (0.0-0.2); #Eosinphils 0.2 10x3/uL (0.0-0.5); #Monocytes 0.7 10x3/uL (0.0-1.1); #Neutrophils 5.2 10x3/uL (1.5-8.4); %Basophils 0.8 % (0.0-2.0); %Eosinophils 2.3 % (0.0-6.0); %Lymphocytes 21.2 % (18.0-47.0); %Monocytes 8.8 % (0.0-10.0); %Neutrophils 66.5 % (40.0-75.0); Hematocrit 35.9 % (38.8-50.0); Hemoglobin 11.7 g/dL (13.5-17.5); Mean Corpuscular HGB CONC 32.6 g/dL (32.0-36.0); Mean Corpuscular Volume 89.1 fl (81.2-95.1); Mean Platelet Volume 12.6 fl (7.4-10.4); Platelet Count 299 10x3/uL (150-450); RBC Distribution Width 14.3 % (11.5-14.5); Red Blood Cell (RBC) Count 4.03 10x6/uL (4.32-5.72); White Blood Cell (WBC) Count 7.7 10x3/uL (3.5-10.5)
[2023-10-07] MEDS: Scopolamine 1 mg/72 hour Patch TD SCH (10:12)
[2023-10-07] MEDS: Lansoprazole 3 MG/ML ORAL SUSPENSION PER TUBE SCH (10:13)
[2023-10-07] MEDS: Morphine 4 MG/ML VIAL SLOW IVP PRN ×2 (10:48→15:49)
[2023-10-07] MEDS: Ibuprofen 100 MG/5 ML UDCUP PO PRN (20:41)
[2023-10-08 06:11] LABS: #Basophils 0.1 10x3/uL (0.0-0.2); #Eosinphils 0.3 10x3/uL (0.0-0.5); #Monocytes 0.9 10x3/uL (0.0-1.1); #Neutrophils 4.3 10x3/uL (1.5-8.4); %Basophils 0.8 % (0.0-2.0); %Eosinophils 3.5 % (0.0-6.0); %Lymphocytes 24.7 % (18.0-47.0); %Monocytes 12.3 % (0.0-10.0); %Neutrophils 58.2 % (40.0-75.0); Hematocrit 36.3 % (38.8-50.0); Hemoglobin 11.5 g/dL (13.5-17.5); Mean Corpuscular HGB CONC 31.7 g/dL (32.0-36.0); Mean Corpuscular Hemoglobin 28.4 pg (27.0-33.0); Mean Corpuscular Volume 89.6 fl (81.2-95.1); Mean Platelet Volume 12.5 fl (7.4-10.4); Platelet Count 299 10x3/uL (150-450); RBC Distribution Width 14.2 % (11.5-14.5); Red Blood Cell (RBC) Count 4.05 10x6/uL (4.32-5.72); White Blood Cell (WBC) Count 7.4 10x3/uL (3.5-10.5)
[2023-10-08] MEDS: Ibuprofen 200 MG/10 ML ORAL.SUSP PO PRN ×2 (07:41→18:06)
[2023-10-08] MEDS: Metoprolol Tartrate 25 MG TAB PER TUBE SCH ×2 (08:37→21:03)
[2023-10-08] MEDS: Lansoprazole 3 MG/ML ORAL SUSPENSION PER TUBE SCH (08:37)
[2023-10-08] MEDS: Polyethylene Glycol 3350 17 GM Packet PER TUBE SCH ×2 (08:38→21:08)
[2023-10-08] MEDS: Morphine 4 MG/ML VIAL SLOW IVP PRN (13:13)
[2023-10-08] MEDS ORDERED: Baclofen 10 MG TAB PO SCH ×2 (18:00→21:00)
[2023-10-08 18:25] LABS: Anion Gap 15 mmol/L (10-20); BUN (Urea Nitrogen) 15 mg/dL (8.9-20.6); Calc. Creatinine Clearance 249 mL/min (70-130); Calcium 9.4 mg/dL (7.8-10.44); Carbon Dioxide 29 mmol/L (22-29); Chloride 97 mmol/L (98-107); Estimated GFR 127; Glucose 99 mg/dL (70-105); Potassium 4.1 mmol/L (3.5-5.1); Sodium 137 mmol/L (136-145)
[2023-10-08] MEDS ORDERED: Magnesium 2 GM/50 ML(in water) 2 GM in Premix 1 BAG IVPB SCH (21:00)
[2023-10-09] MEDS: Ibuprofen 200 MG/10 ML ORAL.SUSP PO PRN (02:20)
[2023-10-09 03:55] VITALS: BMI 26.9
[2023-10-09 06:25] LABS: #Basophils 0.1 10x3/uL (0.0-0.2); #Eosinphils 0.3 10x3/uL (0.0-0.5); #Monocytes 0.6 10x3/uL (0.0-1.1); #Neutrophils 4.1 10x3/uL (1.5-8.4); %Basophils 1.1 % (0.0-2.0); %Eosinophils 4.3 % (0.0-6.0); %Lymphocytes 21.1 % (18.0-47.0); %Monocytes 8.7 % (0.0-10.0); Hematocrit 37.1 % (38.8-50.0); Hemoglobin 11.8 g/dL (13.5-17.5); Mean Corpuscular HGB CONC 31.8 g/dL (32.0-36.0); Mean Corpuscular Hemoglobin 28.4 pg (27.0-33.0); Mean Corpuscular Volume 89.2 fl (81.2-95.1); Mean Platelet Volume 12.1 fl (7.4-10.4); Platelet Count 302 10x3/uL (150-450); RBC Distribution Width 14.3 % (11.5-14.5); Red Blood Cell (RBC) Count 4.16 10x6/uL (4.32-5.72); White Blood Cell (WBC) Count 6.3 10x3/uL (3.5-10.5)
[2023-10-09 06:36] LABS: Anion Gap 17 mmol/L (10-20); BUN (Urea Nitrogen) 13 mg/dL (8.9-20.6); Calc. Creatinine Clearance 264 mL/min (70-130); Calcium 9.7 mg/dL (7.8-10.44); Carbon Dioxide 27 mmol/L (22-29); Chloride 99 mmol/L (98-107); Estimated GFR 127; Glucose 92 mg/dL (70-105); Magnesium 2.1 mg/dL (1.6-2.6); Potassium 4.2 mmol/L (3.5-5.1); Sodium 139 mmol/L (136-145)
[2023-10-09] MEDS: Lansoprazole 3 MG/ML ORAL SUSPENSION PER TUBE SCH (08:36)
[2023-10-09] MEDS: Metoprolol Tartrate 25 MG TAB PER TUBE SCH (08:36)
[2023-10-09] MEDS: Polyethylene Glycol 3350 17 GM Packet PER TUBE SCH (08:39)
[2023-10-09] MEDS ORDERED: Baclofen 10 MG TAB PO SCH (09:00)
[2023-10-09 09:20] VITALS: BP 100/72; TEMP 98.3
== END 2023-10-09 09:20 | disposition short-term general hospital (02) | DRG 207 ==
LOC: CSHERS 11:16 → EEVIPCON 13:08 → CSHICU 13:08 → CSHTELE 09-08 14:50 → CSHIMCU 09-13 21:45 → CSHTELE 09-15 14:43
PROVIDERS: ADMIT Internal Medicine; ATTEND Family Medicine
PROC: 0BH17EZ Insertion of Endotracheal Airway into Trachea, Via Natural or Artificial Opening (ICD-10-PCS; principal; 2023-08-14)
PROC: 5A1955Z Respiratory Ventilation, Greater than 96 Consecutive Hours (ICD-10-PCS; 2023-08-14)
PROC: 5A12012 Performance of Cardiac Output, Single, Manual (ICD-10-PCS; 2023-08-14)
PROC: 4A133R1 Monitoring of Arterial Saturation, Peripheral, Percutaneous Approach (ICD-10-PCS; 2023-08-20)
PROC: 5A09457 Assistance with Respiratory Ventilation, 24-96 Consecutive Hours, Continuous Positive Airway Pressure (ICD-10-PCS; 2023-09-02)
PROC: 5A0945A Assistance with Respiratory Ventilation, 24-96 Consecutive Hours, High Flow/Velocity Cannula (ICD-10-PCS; 2023-09-03)
PROC: 0DJ08ZZ Inspection of Upper Intestinal Tract, Via Natural or Artificial Opening Endoscopic (ICD-10-PCS; 2023-09-10)
PROC: 3E0G76Z Introduction of Nutritional Substance into Upper GI, Via Natural or Artificial Opening (ICD-10-PCS; 2023-09-12)
PROC: 0DH64UZ Insertion of Feeding Device into Stomach, Percutaneous Endoscopic Approach (ICD-10-PCS; 2023-09-12)
PROC: 3E033XZ Introduction of Vasopressor into Peripheral Vein, Percutaneous Approach (ICD-10-PCS; 2023-09-16)
DX: J69.0 Pneumonitis due to inhalation of food and vomit (principal); A41.9 Sepsis, unspecified organism; G93.41 Metabolic encephalopathy; L89.153 Pressure ulcer of sacral region, stage 3; I46.9 Cardiac arrest, cause unspecified; G93.6 Cerebral edema; J96.01 Acute respiratory failure with hypoxia; K65.9 Peritonitis, unspecified; N17.9 Acute kidney failure, unspecified; E87.20 Acidosis, unspecified; G93.1 Anoxic brain damage, not elsewhere classified; N13.2 Hydronephrosis with renal and ureteral calculous obstruction; G72.81 Critical illness myopathy; J98.11 Atelectasis; L03.319 Cellulitis of trunk, unspecified; E87.0 Hyperosmolality and hypernatremia; Z66 Do not resuscitate; Z51.5 Encounter for palliative care; K94.29 Other complications of gastrostomy; F15.90 Other stimulant use, unspecified, uncomplicated; F12.90 Cannabis use, unspecified, uncomplicated; F10.90 Alcohol use, unspecified, uncomplicated; F17.210 Nicotine dependence, cigarettes, uncomplicated; T68.XXXA Hypothermia, initial encounter; R33.9 Retention of urine, unspecified; E87.6 Hypokalemia; D72.829 Elevated white blood cell count, unspecified; Z90.5 Acquired absence of kidney; F19.10 Other psychoactive substance abuse, uncomplicated; D64.9 Anemia, unspecified; K59.00 Constipation, unspecified; R74.01 Elevation of levels of liver transaminase levels; R79.89 Other specified abnormal findings of blood chemistry; R53.81 Other malaise; R13.12 Dysphagia, oropharyngeal phase; T85.9XXA Unspecified complication of internal prosthetic device, implant and graft, initial encounter; M79.604 Pain in right leg; M79.605 Pain in left leg; R23.0 Cyanosis; R25.2 Cramp and spasm; Z11.52 Encounter for screening for COVID-19
CPT/HCPCS: 0241U; 31500; 36415; 36416; 36600; 43762; 70450; 70551; 71045; 71260; 72125; 74177; 76705; 78227; 80048; 80053; 80076; 80143; 80202; 80306; 80307; 82140; 82550; 82805; 82977; 83036; 83540; 83550; 83605; 83690; 83735; 83880; 84100; 84132; 84145; 84484; 85025; 85060; 85610; 85730; 86704; 86706; 86803; 86850; 86900; 86901; 87040; 87070; 87077; 87081; 87086; 87186; 87205; 87340; 87389; 89220; 93005; 93970; 94002; 94003; 94640; 94660; 94667; 94668; 94760; 94762; 94799; 97139; A4649; A9537; C9113; J0171; J0295; J0690; J1100; J1650; J1815; J1940; J2001; J2150; J2185; J2250; J2270; J2272; J2405; J2543; J2700; J2704; J2765; J3010; J3370; J3411; J3475; J3490; J7050; J7120; J7620; J7999; Q9967; S0020; S0028